=== PATIENT | female | born 1950 | race Caucasian/White ===

== ENCOUNTER → 2017-03-20 | Outpatient (CLI) | payer BC, OTHER ==
[~2017-03-20] MED LIST: ALPR.5T PO; ALPR0.5T7 PO; ALPR1T PO; ALPR1TAB2 PO; IBUP-15 PO; LACT1TAB2 PO; LEVO750T39 PO; NAPR220C11 PO; NAPR250T2 PO; SRTR100T PO; TOPI50TA37 PO; TPR25T PO; VERA240T98 PO; VRP240TCR PO
--- NOTE | 2017-03-20 13:05 | Diagnostic Imaging Report ---
3 views of the left knee. INDICATION: Fall. Left knee pain. FINDINGS: No fracture, dislocation, or radiopaque foreign body is seen. No suprapatellar effusion is noted. No significant arthritic changes seen. IMPRESSION: Unremarkable exam. Dictated by: Dictated on workstation # [id number]
== END ==
LOC: RAD 10:51
PROVIDERS: ATTEND Family Medicine
DX: M25.562 Pain in left knee (principal)
CPT/HCPCS: 73562

== ENCOUNTER → 2017-03-28 | Outpatient (CLI) | payer OTHER, BC | LOC: RAD 09:24 | PROVIDERS: ATTEND Family Medicine | DX: M25.562 Pain in left knee (principal) ==

== ENCOUNTER → 2017-03-31 | Outpatient (CLI) | payer BC, OTHER ==
--- NOTE | 2017-03-31 09:04 | Diagnostic Imaging Report ---
PROCEDURE: MRI left joint lower extremity without contrast. TECHNIQUE: Multiplanar, multisequence non contrast-enhanced MRI of the left lower extremity was accomplished. INDICATION: Fall. Left knee pain after injury. FINDINGS: There is bone marrow edema involving the anterior aspect of the lateral tibial condyle compatible with a contusion. No macroscopic or displaced fracture seen. The extensor mechanism is intact. There is a small suprapatellar effusion. There is a cystic lesion measuring 1.1 x 1.2 x 1.0 cm seen along the upper posterior aspect of the posterior knee joint capsule area projecting into the popliteal fossa of the supracondylar level of the femur. This is likely related to a ganglion cyst. There is no Santos cyst. The ACL and PCL are intact. The medial meniscus demonstrates a complex tear involving the posterior horn and body of the meniscus with extension to the posterior root. The anterior horn appears intact. The lateral meniscus demonstrates increased signal in the posterior horn, potentially degenerative with no definite tear. There is mild edema along the MCL suggestive of a sprain. The lateral collateral ligament complex appears intact. There is mild thinning of the cartilage in the medial compartment with fissuring. There is minimal cartilage fissuring in the lateral compartment. The patellofemoral compartment demonstrates preserved cartilage. IMPRESSION: 1. Complex tear involving the posterior horn and body of the medial meniscus. 2. Bone marrow contusion in the anterior aspect of the lateral tibial condyle. 3. A 1.2-cm fluid-intensity lesion abutting the posterior aspect of the supracondylar region of the femur, probably a ganglion cyst. Dictated by: Dictated on workstation # [id number]
== END ==
LOC: RAD 07:03
PROVIDERS: ATTEND Family Medicine
DX: S83.242A Other tear of medial meniscus, current injury, left knee, initial encounter (principal); M89.9 Disorder of bone, unspecified; W19.XXXA Unspecified fall, initial encounter; Y99.8 Other external cause status
CPT/HCPCS: 73721

== ENCOUNTER → 2018-08-14 | Outpatient (CLI) | payer BC ==
[~2018-08-14] MED LIST changes: -NAPR250T2 PO; +NAPR250T6 PO
== END ==
LOC: CARD 12:45
PROVIDERS: ATTEND Internal Medicine Cardiovascular Disease
DX: R07.9 Chest pain, unspecified (principal); I34.0 Nonrheumatic mitral (valve) insufficiency; R00.2 Palpitations; I07.1 Rheumatic tricuspid insufficiency
CPT/HCPCS: 93306

== ENCOUNTER → 2018-08-17 | Outpatient (CLI) | payer BC ==
[~2018-08-17] VITALS: Ht 152.4 cm; Wt 57.6 kg
[~2018-08-17] MED LIST changes: +CATHETER FLUSH 10 ML SYR IV PRN; +VERA240T14 PO; -VERA240T98 PO
[2018-08-17 09:05] VITALS: BP 126/82
[2018-08-17 09:09] VITALS: BP 166/81
[2018-08-17 09:10] VITALS: BP 166/83
[2018-08-17 09:12] VITALS: BP 158/87
--- NOTE | 2018-08-17 14:55 | STRESS TEST ---
DATE OF SERVICE: 08/17/2018 EXERCISE MYOVIEW STRESS TEST REFERRING PHYSICIAN: Magda Velazco MD. Baseline heart rate is 76, baseline blood pressure 119/78. Baseline EKG is sinus rhythm with no ischemic changes. In summary, the patient was injected with 10.33 mCi of technetium-99 Myoview and the resting images were obtained. Then, the patient started exercising with a baseline heart rate, blood pressure and EKG mentioned above. At peak stress level, she was injected with 31.4 mCi of technetium-99 Myoview. The patient was able to exercise for a total of 4 minutes 16 seconds on standard Billy protocol. With peak exercise level, EKG was showing nondiagnostic changes with less than [address] depression in leads II, III and aVF. During recovery, heart rate and blood pressure returned to baseline. EKG returned to baseline. The resting and stress images were reviewed and compared in the short axis, horizontal long axis, and vertical long axis views. Review of the images showed good radiotracer uptake with no ischemia or infarction on SPECT images. SSS is 3, SDS 3, and TID value 0.97. On the gated images, the left ventricle appeared to be normal size with normal contractility. Calculated ejection fraction is 92%. CONCLUSION: 1. Fair exercise tolerance, a total of 4 minutes 15 seconds on standard Billy protocol, total of 6 METs, achieving 92% of maximum expected heart rate. 2. Appropriate heart rate and blood pressure response to exercise returned to baseline during recovery. 3. Nondiagnostic EKG changes with exercise returned to baseline during recovery. 4. No significant ischemia or infarction on SPECT images. 5. Small to normal left ventricular size with normal contractility. Calculated ejection fraction is 92. Job ID: [id number] DocumentID: [id number] Dictated Date: 08/17/2018 12:42:04 Verifier Operator Date: 08/17/2018 14:54:57 Dictated By: ANDRE REMY MD
== END ==
LOC: CARD 07:29
PROVIDERS: ATTEND Internal Medicine Cardiovascular Disease
DX: R07.89 Other chest pain (principal); R00.2 Palpitations; I08.1 Rheumatic disorders of both mitral and tricuspid valves
CPT/HCPCS: 78452; 93017

== ENCOUNTER → 2019-01-05 | Outpatient (CLI) | payer BC ==
[~2019-01-05] MED LIST changes: -CATHETER FLUSH 10 ML SYR IV PRN
--- NOTE | 2019-01-05 11:05 | Diagnostic Imaging Report ---
INDICATION: Screening for osteoporosis. COMPARISON: None FINDINGS: The bone and density of the hips and spine was measured. The T score for the spine is -1.7. This does indicate osteopenia. The T score for the left femoral neck is -2.0 and the total T score for the left hip is -1.6. The total T score for the right hip is -2.0. All of these values indicate osteopenia. However the T score for the right femoral neck is -2.6 and this does suggest osteoporosis. AP Spine L1-L4: [BMD (g/cm2): 0.999] [T-Score: -1.7] [Z-Score: 0.4] [BMD Previous: N/A] [BMD % Change: N/A] LT Hip Neck: [BMD (g/cm2): 0.759] [T-Score: -2.0] [Z-Score: -0.2] LT Hip Total: [BMD (g/cm2):0.809] [T-Score:-1.6] [Z-Score: 0.0] [BMD Previous: N/A] [BMD % Change: N/A] RT Hip Neck: [BMD (g/cm2):0.672] [T-Score:-2.6] [Z-Score:-0.8] RT Hip Total: [BMD (g/cm2):0.753] [T-score:-2.0] [Z-Score:-0.4] [BMD Previous:N/A] [BMD % Change:N/A] *Indicates significant change from prior examination based on 95% confidence level. World Health Organization criteria for BMD interpretation classify patients as Normal (T-score at or above -1.0), Osteopenic (T-score between -1.0 and -2.5) or Osteoporotic (T-score at or below -2.5). LIMITATIONS AND MODIFICATION: None. FRACTURE RISK (FRAX SCORE): The ten year probability of (%): Major Osteoporotic Fracture: [14.0] Hip Fracture: [3.5] IMPRESSION: 1. The T score for the spine, the left hip, the left femoral neck and the right hip indicates osteopenia. 2. There is osteoporosis of the right femoral neck however. 3. See below National Osteoporosis Foundation guidelines on when to potentially initiate pharmacologic therapy. Based on the National Osteoporosis Foundation Guidelines, pharmacologic treatment should be initiated in any of the following, unless clinical conditions suggest otherwise: * Any patient with prior fragility fracture of the hip or vertebrae. A spine fracture indicates 5X risk for subsequent spine fracture and 2X risk for subsequent hip fracture. * Osteoporosis (T-score <-2.5). * Postmenopausal women and men age 50 and older with low bone mass/osteopenia (T-score between -1.0 and -2.5) by DXA and 10-year major osteoporotic fracture greater than 20% or a 10-year probability of hip fracture greater than 3%. These fracture risks are supplied above in the FRAX score, if applicable. * Clinician judgement and/or patient preferences may indicate treatment for people with 10-year fracture probabilities above or below these levels. Dictated by: Dictated on workstation # [id number]
== END ==
LOC: RAD 10:16
PROVIDERS: ATTEND Family Medicine
DX: Z13.820 Encounter for screening for osteoporosis (principal); M81.0 Age-related osteoporosis without current pathological fracture; M85.89 Other specified disorders of bone density and structure, multiple sites
CPT/HCPCS: 77080

== ENCOUNTER 2019-05-02 19:46 | Day surgery (SDC) | payer BC ==
[~2019-05-02] VITALS: Ht 152.4 cm; Wt 52.6 kg
[2019-05-02] MEDS ORDERED: ADENOSINE 6 MG/2 ML (ADENOCARD) VIAL IV ONE ×2 (19:53→20:15)
[2019-05-02] MEDS ORDERED: NS IV 1000 ML 1,000 ML ONE (19:54)
[2019-05-02] MEDS ORDERED: NS IV 1000 ML 1,000 ML IV ONE (20:14)
[2019-05-02 20:21] LABS: BASOPHILS # (AUTO) 0.1 10^3/uL (0.0-0.1); BASOPHILS % (AUTO) 1 % (0-10); EOSINOPHILS # (AUTO) 0.5 10^3/uL (0.0-0.3); EOSINOPHILS % (AUTO) 5 % (0-10); HEMATOCRIT 41 % (35-52); HEMOGLOBIN 13.6 G/DL (11.5-16.0); LYMPHOCYTES # (AUTO) 3.8 X 10^3 (1.0-4.0); LYMPHOCYTES % (AUTO) 41 % (12-44); MEAN CORPUSCULAR HEMOGLOBIN 30 PG (25-34); MEAN CORPUSCULAR HGB CONC 33 G/DL (32-36); MEAN CORPUSCULAR VOLUME 91 FL (80-99); MEAN PLATELET VOLUME 10.5 FL (7.4-10.4); MONOCYTES # (AUTO) 0.8 X 10^3 (0.0-1.0); MONOCYTES % (AUTO) 8 % (0-12); NEUTROPHILS # (AUTO) 4.1 X 10^3 (1.8-7.8); NEUTROPHILS % (AUTO) 44 % (42-75); PLATELET COUNT 331 10^3/uL (130-400); RED CELL DISTRIBUTION WIDTH 12.8 % (10.0-14.5); WHITE BLOOD COUNT 9.2 10^3/uL (4.3-11.0)
[2019-05-02 20:33] LABS: ALANINE AMINOTRANSFERASE 113 U/L (0-55); ALBUMIN 4.6 GM/DL (3.2-4.5); ALKALINE PHOSPHATASE 87 U/L (40-136); BILIRUBIN,TOTAL 0.5 MG/DL (0.1-1.0); BUN/CREATININE RATIO 15; CALCIUM 9.7 MG/DL (8.5-10.1); CARBON DIOXIDE 23 MMOL/L (21-32); CHLORIDE 100 MMOL/L (98-107); GFR ESTIMATED 55; GLUCOSE 166 MG/DL (70-105); MAGNESIUM 1.9 MG/DL (1.6-2.4); POTASSIUM 3.5 MMOL/L (3.6-5.0); SODIUM 136 MMOL/L (135-145); TOTAL PROTEIN 7.8 GM/DL (6.4-8.2)
[2019-05-02 20:37] LABS: INR 0.9 (0.8-1.4); PROTHROMBIN TIME PATIENT 12.5 SEC (12.2-14.7)
--- NOTE | 2019-05-02 20:43 | ED Cardiac General ---
History of Present Illness General Chief Complaint: Cardiac/General Problems Stated Complaint: CHEST PAIN, HEART RATE Nursing Triage Note: Pt ambulates to RM 3 with c/o sternal chest pain that radiates to right shoulder, started approx 1915 this evening. Pt states she has a Hx of AFib, is in SVT on arrival. Pt denies taking any ASA or NTG [employer] DIRECTOR. Source: patient Exam Limitations: no limitations History of Present Illness Date Seen by Provider: May 02, 2019 Time Seen by Provider: 19:53 Initial Comments Here with report of acute onset of rapid heart rate at about 1915 tonight. Does have history of atrial fibrillation and she is on verapamil. She's been stable on that for 20 years. She follows with Dr. Zuñiga and has appointment with him tomorrow. Does note that she had neck pain on the right side yesterday. Denies nausea, vomiting or sweating. States that she feels like her heart is pounding in her chest and was noted to have a heart rate of 200 on arrival. Ultimately she decided to come to the ER after her apple watch was given a call EMS because it found a heart rate of 205. reports the blood pressure home was 130s over 80s. She has never had an event like this before. She reports that she has had no for stress test and echocardiogram have been normal and a heart catheter 20 years ago that was also normal. 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 TOOK WHEN YOUNGER AND PASSED OUT, 12/03/11) Home Medications Alprazolam 0.5 Mg Tablet, 2 MG PO Q4H PRN for HEADACHE, (Reported) TAKES 4 (0.5MG) TABLETS Alprazolam 0.5 Mg Tablet, 1 MG PO 0500, 1200, 1900, (Reported) TAKES 2 (0.5MG) TABLETS Lactobacillus Acidophilus/Pect 1 Each Tab.chew, 1 EACH PO TID Prescribed by: AIDAN PAREDES on 10/04/15834 Levofloxacin 750 Mg Tablet, 750 MG PO DAILY@1100 Prescribed by: AIDAN PAREDES on 10/04/15834 Naproxen 250 Mg Tablet, 250 MG PO BID WITH MEALS Prescribed by: AIDAN PAREDES on 10/04/15834 Sertraline Hcl 100 Mg Tab, 100 MG PO DAILY, (Reported) Topiramate 50 Mg Tablet, 25 MG PO BID Prescribed by: AIDAN PAREDES on 10/04/15834 Verapamil HCl 240 Mg Tablet.er, 120 MG PO DAILY, (Reported) TAKES 1/2 (240MG) TABLET Patient Home Medication List Home Medication List Reviewed: Yes Review of Systems Review of Systems Constitutional: see HPI; No chills, No fever EENTM: No Symptoms Reported Respiratory: Denies Cough, Denies Shortness of Air Cardiovascular: See HPI, Irregular Heart Rate, Syncope Gastrointestinal: No Symptoms Reported Genitourinary: No Symptoms Reported Musculoskeletal: joint pain (right shoulder), muscle pain, neck pain (right- sided) Skin: no symptoms reported All Other Systems Reviewed Negative Unless Noted: Yes Past Iepyahj-Duvjvc-Xopvej Hx Past Med/Social Hx: Reviewed Nursing Past Med/Soc Hx Patient Social History Alcohol Use: Denies Use Recreational Drug Use: No Smoking Status: Never a Smoker 2nd Hand Smoke Exposure: No Recent Foreign Travel: No Contact w/Someone Who Travel: No Recent Infectious Disease Expo: No Recent Hopitalizations: No Physical Abuse: No Sexual Abuse: No Mistreated: No Fear: No Immunizations Up To Date Tetanus Booster (TDap): Unknown PED Vaccines UTD: No Seasonal Allergies Seasonal Allergies: No Past Medical History Surgeries: Yes (breast biopsy) Lumpectomy, Tonsillectomy Respiratory: No Cardiac: Yes Atrial Fibrillation Neurological: Yes Headaches /Migraines Reproductive Disorders: No Female Reproductive Disorders: Denies Sexually Transmitted Disease: No HIV/AIDS: No Genitourinary: No Gastrointestinal: Yes Polyps Musculoskeletal: Yes Arthritis Endocrine: No HEENT: No Cancer: Yes (precancerous mole removed from face) Skin Psychosocial: No Integumentary: No Blood Disorders: No Adverse Reaction/Blood Tranf: No Family Medical History Reviewed Nursing Family Hx Completed stroke 19 MOTHER, , Age:60 years and older G8 BROTHER, , Age:40 Coronary thrombosis 19 MOTHER, , Age:60 years and older Dementia 19 MOTHER, , Age:60 years and older Diabetes mellitus 19 MOTHER, , Age:60 years and older (mother and MGM) Glaucoma 19 MOTHER, , Age:60 years and older Hypertension 19 MOTHER, , Age:60 years and older G8 SISTER Myocardial infarction G8 BROTHER, , Age:40 No Pertinent Family Hx Physical Exam Vital Signs Vital Signs - First Documented 05/02/19 19:50 Temp 36.0 Pulse 208 Resp 16 B/P (MAP) 100/76 (84) Pulse Ox 100 O2 Delivery Room Air Capillary Refill : Less Than 3 Seconds Height, Weight, BMI Height: 5'0.00" Weight: 127lbs. 0.0oz. [id number]; 22.00 BMI Method:Estimated General Appearance: No Apparent Distress, WD/WN HEENT: PERRL/EOMI, Pharynx Normal Neck: Non Tender, Supple Respiratory: Lungs Clear, Normal Breath Sounds Cardiovascular: No Murmur, Tachycardia Gastrointestinal: Non Tender, Soft Extremity: Normal Range of Motion, Non Tender Neurologic/Psychiatric: Alert, Oriented x3 Skin: Normal Color, Warm/Dry Progress/Results/Core Measures Results/Orders Lab Results Laboratory Tests Test 05/02/19 20:04 Range/Units White Blood Count 9.2 4.3-11.0 10^3/uL Red Blood Count 4.56 4.35-5.85 10^6/uL Hemoglobin 13.6 11.5-16.0 G/DL Hematocrit 41 35-52 % Mean Corpuscular Volume 91 80-99 FL Mean Corpuscular Hemoglobin 30 25-34 PG Mean Corpuscular Hemoglobin Concent 33 32-36 G/DL Red Cell Distribution Width 12.8 10.0-14.5 % Platelet Count 331 130-400 10^3/uL Mean Platelet Volume 10.5 H 7.4-10.4 FL Neutrophils (%) (Auto) 44 42-75 % Lymphocytes (%) (Auto) 41 12-44 % Monocytes (%) (Auto) 8 0-12 % Eosinophils (%) (Auto) 5 0-10 % Basophils (%) (Auto) 1 0-10 % Neutrophils # (Auto) 4.1 1.8-7.8 X 10^3 Lymphocytes # (Auto) 3.8 1.0-4.0 X 10^3 Monocytes # (Auto) 0.8 0.0-1.0 X 10^3 Eosinophils # (Auto) 0.5 H 0.0-0.3 10^3/uL Basophils # (Auto) 0.1 0.0-0.1 10^3/uL Prothrombin Time 12.5 12.2-14.7 SEC INR Comment 0.9 0.8-1.4 Activated Partial Thromboplast Time 31 24-35 SEC D-Dimer 1.08 H 0.00-0.49 UG/ML Sodium Level 136 135-145 MMOL/L Potassium Level 3.5 L 3.6-5.0 MMOL/L Chloride Level 100 98-107 MMOL/L Carbon Dioxide Level 23 21-32 MMOL/L Anion Gap 13 5-14 MMOL/L Blood Urea Nitrogen 15 7-18 MG/DL Creatinine 1.00 0.60-1.30 MG/DL Estimat Glomerular Filtration Rate 55 BUN/Creatinine Ratio 15 Glucose Level 166 H 70-105 MG/DL Calcium Level 9.7 8.5-10.1 MG/DL Corrected Calcium 8.5-10.1 MG/DL Magnesium Level 1.9 1.6-2.4 MG/DL Total Bilirubin 0.5 0.1-1.0 MG/DL Aspartate Amino Transf (AST/SGOT) 146 H 5-34 U/L Alanine Aminotransferase (ALT/SGPT) 113 H 0-55 U/L Alkaline Phosphatase 87 40-136 U/L Myoglobin 19.1 10.0-92.0 NG/ML Troponin I < 0.028 <0.028 NG/ML Total Protein 7.8 6.4-8.2 GM/DL Albumin 4.6 H 3.2-4.5 GM/DL My Orders Orders - JAYDA STEIN MD Adenosine Injection (Adenocard Injection (05/02/19 19:53) Ns Iv 1000 Ml (Sodium Chloride 0.9%) (05/02/19 19:54) Cbc With Automated Diff (05/02/19 20:14) Magnesium (05/02/19 20:14) Chest 1 View, Ap/Pa Only (05/02/19 20:14) Ekg Tracing (05/02/19 20:14) Cardiac Profile 1 (05/02/19 20:14) Comprehensive Metabolic Panel (05/02/19 20:14) Myoglobin Serum (05/02/19 20:14) Protime With Inr (05/02/19 20:14) Partial Thromboplastin Time (05/02/19 20:14) O2 (05/02/19 20:14) Monitor-Rhythm Ecg Trace Only (05/02/19 20:14) Ed Iv/Invasive Line Start (05/02/19 20:14) Fibrin Degradation Products (05/02/19 20:14) Ekg Tracing (05/02/19 20:14) Adenosine Injection (Adenocard Injection (05/02/19 20:15) Ns Iv 1000 Ml (Sodium Chloride 0.9%) (05/02/19 20:14) Medications Given in ED Current Medications Medications Dose Ordered Sig/Val Route Start Time Stop Time Status Last Admin Dose Admin Adenosine 6 mg STK-MED ONCE IV 05/02/19 19:53 05/02/19 19:57 DC 05/02/19 20:08 6 MG Sodium Chloride 1,000 ml @ ud STK-MED ONCE .ROUTE 05/02/19 19:54 05/02/19 19:57 DC 05/02/19 20:08 0 MLS/HR Vital Signs/I&O 05/02/19 19:50 Temp 36.0 Pulse 208 Resp 16 B/P (MAP) 100/76 (84) Pulse Ox 100 O2 Delivery Room Air 05/03/19 00:00 Intake Total 1000 ml Balance 1000 ml Blood Pressure Mean: 84 POS Progress Progress Note : Progress Note Seen and evaluated. Patient noted to be and supraventricular tachycardia with a rate of 200-210. IV 2 established, labs, EKG and chest x-ray ordered. Normal saline 1 L bolus. We did try vagal maneuvers with blowing into syringe and lifting legs. This did not work. Adenosine 6 mg IV with rapid push and flush afterwards done and this did resolve the SVT. Patient went into sinus rhythm. She noted increasing right shoulder pain at that time. Blood pressure 100/60. Heart rate 80s to 100 now. We will check labs and continue to monitor. 2119: D- dimer noted to be slightly elevated. I did discuss this with Dr. Zuñiga. We will go ahead and give Lovenox 50 mg subcutaneous and he is recommending admission fo r observation for which I totally agree Especially in light of the chest pain and paroxysmal SVT. 2147: I did rediscuss the case with Dr. Zuñiga as patient and family did have questions regarding observation visit. Currently the only meet observation status but they wanted me to check so I did. Patient still meets observation status and this is how she will be admitted the. Dr. Zuñiga will see them in the morning. I did rediscuss my concerns related to her presentation and chest pain. She agrees to plan. Admit, observation status. Patient was allowed to take her home Xanax dosing and we will continue that on admission. Initial ECG Impression Date: May 02, 2019 Initial ECG Impression Time: 19:52 Initial ECG Rate: 199 Initial ECG Rhythm: SVT Initial ECG Impression: SVT Comment Supraventricular tachycardia with rate of 199. Normal axis. No evidence of ST elevation CO. Interpreted by me. EKG : EKG Time: 20:07 Rate: 88 Rhythm: Normal Sinus ECG Comparisson: Changed ECG Impression: Normal Comment Normal sinus rhythm with rate of 88. Normal axis. No evidence of ST elevation CO. Change from previous done earlier today. Interpreted by me. Diagnostic Imaging Diagonstic Imaging: Xray Plain Films/CT/US/NM/MRI: chest Comments [facility]. POS [place], [place] POS NAME: JASON KEMP [facility] REC#: [id number] PT STATUS: REG ER : 1950 PHYSICIAN: JAYDA STEIN MD ADMIT DATE: 05/02/19/ER Draft POSDate of Exam:05/02/19 CHEST 1 VIEW, AP/PA ONLY EXAMINATION: Portable erect AP chest at 8:27 PM INDICATION: Chest pain The heart size is at the upper limits of normal but stable when compared to 10/04/2015. The lungs are clear. There is no evidence for failure, pneumonia or a pleural effusion to indicate an acute abnormality. The carotid bronchovascular markings in the right infrahilar region seen previously are again evident and no different. The mediastinum is not widened. The osseous structures are intact. IMPRESSION: There is no evidence for active disease. Dictated on workstation # [id number] Dict: 05/02/192033 Trans: 05/02/192043 [facility] [id number] Interpreted by: AILIN WHITEHEAD MD Electronically signed by: Departure Communication (Admissions) Time/Spoke to Admitting Phy: 21:20 Impression Primary Impression: Paroxysmal SVT (supraventricular tachycardia) Additional Impression: Chest pain Qualified Codes: R07.9 - Chest pain, unspecified Disposition: ADMITTED INPATIENT Condition: Stable Admissions Decision to Admit Reason: Admit from ER (General) Decision to Admit/Date: May 02, 2019 Time/Decision to Admit Time: 21:20 Departure-Patient Inst. Referrals: AIDAN PAREDES MD (PCP/Family) Primary Care Physician JAYDA STEIN MD May 02, 2019 20:43 POS
[2019-05-02] MEDS ORDERED: ENOXAPARIN 60 MG/0.6 ML (LOVENOX) SYR SC ONE (21:30)
[2019-05-02 22:30] VITALS: BP 138/84
[2019-05-02 22:53] VITALS: BP 117/78
[2019-05-02 23:08] VITALS: BP 132/81
[2019-05-02 23:23] VITALS: BP 135/81
[2019-05-02] MEDS ORDERED: ONDANSETRON 4 MG/2 ML (SDV) Z0FRAN IV PRN (23:30)
[2019-05-02 23:53] VITALS: BP 136/90
[2019-05-03] VITALS (19 sets, daily range): BP systolic 106–129; BP diastolic 69–85
[2019-05-03] MEDS: NITROGLYCERIN 0.4 MG SL TABS BTL 25'S SL PRN ×2 (00:05→06:26)
[2019-05-03 02:28] LABS: BASOPHILS % (AUTO) 1 % (0-10); EOSINOPHILS # (AUTO) 0.4 10^3/uL (0.0-0.3); EOSINOPHILS % (AUTO) 6 % (0-10); HEMATOCRIT 39 % (35-52); HEMOGLOBIN 12.6 G/DL (11.5-16.0); LYMPHOCYTES # (AUTO) 1.9 X 10^3 (1.0-4.0); LYMPHOCYTES % (AUTO) 32 % (12-44); MEAN CORPUSCULAR HEMOGLOBIN 30 PG (25-34); MEAN CORPUSCULAR HGB CONC 33 G/DL (32-36); MEAN CORPUSCULAR VOLUME 91 FL (80-99); MEAN PLATELET VOLUME 10.8 FL (7.4-10.4); MONOCYTES # (AUTO) 0.5 X 10^3 (0.0-1.0); MONOCYTES % (AUTO) 8 % (0-12); NEUTROPHILS # (AUTO) 3.2 X 10^3 (1.8-7.8); NEUTROPHILS % (AUTO) 54 % (42-75); PLATELET COUNT 228 10^3/uL (130-400); RED CELL DISTRIBUTION WIDTH 12.9 % (10.0-14.5); WHITE BLOOD COUNT 5.9 10^3/uL (4.3-11.0)
[2019-05-03 02:46] LABS: ALANINE AMINOTRANSFERASE 89 U/L (0-55); ALBUMIN 4.1 GM/DL (3.2-4.5); ALKALINE PHOSPHATASE 66 U/L (40-136); BILIRUBIN,TOTAL 0.6 MG/DL (0.1-1.0); BUN/CREATININE RATIO 17; CALCIUM 9.4 MG/DL (8.5-10.1); CARBON DIOXIDE 21 MMOL/L (21-32); CHLORIDE 107 MMOL/L (98-107); CHOLESTEROL 207 MG/DL (< 200); CREATININE SERUM 0.71 MG/DL (0.60-1.30); GFR ESTIMATED > 60; GLUCOSE 93 MG/DL (70-105); HDL CHOLESTEROL 59 MG/DL (40-60); POTASSIUM 3.9 MMOL/L (3.6-5.0); SODIUM 138 MMOL/L (135-145); TOTAL PROTEIN 6.7 GM/DL (6.4-8.2); TRIGLYCERIDES 87 MG/DL (<150); VLDL CHOLESTEROL 17 MG/DL (5-40)
--- NOTE | 2019-05-03 08:04 | Progress Note - Hospitalist ---
Subjective HPI/CC On Admission Date Seen by Provider: May 03, 2019 Time Seen by Provider: 07:15 Chest pain Subjective/Events-last exam Patient was comfortable this morning. She stated that she didn't fall asleep until 2 am, but has trouble falling asleep usually. Last night the patient has some chest pain that felt like it radiated to her back and up to her neck. She was given Nitroglycerin and states that she is feeling better. She did state that she started to get a headache this morning but attributes it to the nitro tablet. She also states that her nausea has gradually become better. The patient's vitals were normal and stable this morning. The patient did state that her neck was a little stiff and that the top of her foot was intermittently tender, but this is an ongoing issue. Review of Systems General: No Chills, No Night Sweats, No Fatigue, No Malaise, No Appetite, No Other HEENT: Head Aches; No Visual Changes, No Eye Pain; Ear Pain (L Ear pain + tinnitis ); No Dysphasia, No Sinus Congestion, No Post Nasal Drip, No Sore Throat, No Other Pulmonary: No Dyspnea, No Cough, No Pleuritic Chest Pain; Other (Chest ti ghtness) Cardiovascular: No: Chest Pain, Palpitations, Orthopnea, Paroxysmal Noc. Dyspnea, Edema, Lt Headedness, Other Gastrointestinal: Constipation; No: Nausea, Vomiting, Abdominal Pain, Diarrhea, Melena, Hematochezia, Other Genitourinary: No Dysuria, No Frequency, No Incontinence, No Hematuria, No Retention, No Other Musculoskeletal: neck pain, foot pain (R Foot on the dorsal aspect) Neurological: No: Weakness, Numbness, Incoordination, Change in speech, Confusion, Seizures, Other Focused Exam Respiratory: Chest Non Tender, Lungs Clear, Normal Breath Sounds, No Accessory Muscle Use, No Respiratory Distress Cardiovascular: Regular Rate, Rhythm, No Edema, No Gallop, No JVD, No Murmur, Normal Peripheral Pulses Peripheral Pulses: 2+ Carotid (R), 2+ Carotid (L), 2+ Dorsalis Pedis (R), 2+ Left Dors-Pedis (L), 2+ Radial Pulses (R), 2+ Radial Pulses (L) Skin: normal color, warm/dry Objective Exam Vital Signs Vital Signs Date Time Temp Pulse Resp B/P (MAP) Pulse Ox O2 Delivery O2 Flow Rate FiO2 05/03/19 06:38 74 123/82 (96) 05/03/19 06:28 97 Room Air 05/03/19 03:53 36.2 20 Capillary Refill : Less Than 3 Seconds General Appearance: No Apparent Distress, WD/WN HEENT: PERRL/EOMI Neck: Full Range of Motion, Normal Inspection, Supple, Tender Lateral (L lateral tenderness - muscular) Respiratory: Chest Non Tender, Lungs Clear, Normal Breath Sounds, No Accessory Muscle Use, No Respiratory Distress Cardiovascular: Regular Rate, Rhythm, No Edema, No Gallop, No JVD, No Murmur, Normal Peripheral Pulses Gastrointestinal: Normal Bowel Sounds, No Organomegaly, No Pulsatile Mass, Non Tender, Soft Extremity: Normal Capillary Refill, Normal Range of Motion, Non Tender, No Calf Tenderness Neurologic/Psychiatric: Alert, Oriented x3, No Motor/Sensory Deficits, Normal Mood/Affect Skin: Normal Color, Warm/Dry Lymphatic: No Adenopathy Results/Procedures Lab Laboratory Tests 05/02/19 20:04 05/03/19 02:10 Patient resulted labs reviewed. Assessment/Plan Assessment and Plan Assess & Plan/Chief Complaint Assessment: 1. Cardiovascular: - A. Fib: treat with verapamil - Angina Pectoris: treat with Nitroglycerin tablet PRN - Anterior lead ST depression: Monitor troponin and CK-MB levels - SVT: rate control 2. HEENT: - L Ear pain and tinnitis: monitor if worsen 3. MSK: - Cervical tenderness on the L: anti-inflammatory PRN Clinical Quality Measures AMI/AHF: ASA po Prior to arrival: Yes (325 mg this morning) DVT/VTE Risk/Contraindication: Risk Factor Score Per Nursin RFS Level Per Nursing on Admit: 2=Moderate AVELINO LI MED STUDEN May 03, 2019 08:04 POS
[2019-05-03] MEDS ORDERED: CYAN250014 PO (08:25)
[2019-05-03] MEDS ORDERED: CHOL500050 PO (08:25)
[2019-05-03] MEDS ORDERED: ALPR0.5T7 PO (08:25)
[2019-05-03] MEDS ORDERED: ASPI-808 PO (08:25)
--- NOTE | 2019-05-03 08:51 | Consultation-Cardiology ---
HPI-Cardiology Cardiology Consultation Date of Consultation 05/03/19 Date of Admission Time Seen by Provider: 08:46 Indication: chest pain HPI 69-year-old lady with history of coronary artery disease, has been having chest pain on and off, started to have sudden onset of pounding in her chest, came into the emergency room and noted to have SVT, probably reentry tachycardia, res ponded to adenosine injection. Started to have chest pain then headache. Denied any syncope or near syncopal episode. Has been compliant with her medication Home Medications & Allergies Allergies: Coded Allergies: Sulfa (Sulfonamide Antibiotics) (Unverified Allergy, Severe, RASH, 12/03/11) codeine (Unverified Allergy, Severe, SOA, 12/03/11) Uncoded Allergies: PCN (Allergy, Intermediate, PT. TOOK WHEN YOUNGER AND PASSED OUT, 12/03/11) Home Medication List Reviewed: Yes RBC-Fqhqzm-Vjxzaz Hx Patient Social History Marital Status: Employed/Student: employed Alcohol Use: Denies Use Recreational Drug Use: No Smoking Status: Never a Smoker 2nd Hand Smoke Exposure: No Recent Foreign Travel: No Recent Infectious Disease Expo: No Recent Hopitalizations: No Immunizations Up To Date Tetanus Booster (TDap): Unknown Date of Pneumonia Vaccine: Oct 04, 2015 Past Medical History discussed below Family Medical History Significant Family History: No Pertinent Family Hx Family History: Completed stroke 19 MOTHER, , Age:60 years and older G8 BROTHER, , Age:40 Coronary thrombosis 19 MOTHER, , Age:60 years and older Dementia 19 MOTHER, , Age:60 years and older Diabetes mellitus 19 MOTHER, , Age:60 years and older (mother and MGM) Glaucoma 19 MOTHER, , Age:60 years and older Hypertension 19 MOTHER, , Age:60 years and older G8 SISTER Myocardial infarction G8 BROTHER, , Age:40 Review of Systems-General Review of Systems Constitutional: see HPI; No chills, No fever EENTM: see HPI, no symptoms reported Respiratory: see HPI; No cough, No dyspnea on exertion, No hemoptysis, No orthopnea, No phlegm, No short of breath, No stridor, No wheezing, No other Cardiovascular: see HPI, chest pain; No edema, No Hx of Intervention; palpitations; No syncope, No vascular heart diseas, No other Gastrointestinal: no symptoms reported, see HPI Genitourinary: no symptoms reported, see HPI Musculoskeletal: joint pain (right shoulder), muscle pain, neck pain (right- sided) Skin: no symptoms reported Psychiatric/Neurological: See HPI, Anxiety All Other Systems Reviewed Negative Unless Noted: Yes Reviewed Test Results Reviewed Test Results Lab Laboratory Tests Test 05/02/19 20:04 05/03/19 02:10 05/03/19 08:04 Range/Units White Blood Count 9.2 5.9 4.3-11.0 10^3/uL Red Blood Count 4.56 4.23 L 4.35-5.85 10^6/uL Hemoglobin 13.6 12.6 11.5-16.0 G/DL Hematocrit 41 39 35-52 % Mean Corpuscular Volume 91 91 80-99 FL Mean Corpuscular Hemoglobin 30 30 25-34 PG Mean Corpuscular Hemoglobin Concent 33 33 32-36 G/DL Red Cell Distribution Width 12.8 12.9 10.0-14.5 % Platelet Count 331 228 130-400 10^3/uL Mean Platelet Volume 10.5 H 10.8 H 7.4-10.4 FL Neutrophils (%) (Auto) 44 54 42-75 % Lymphocytes (%) (Auto) 41 32 12-44 % Monocytes (%) (Auto) 8 8 0-12 % Eosinophils (%) (Auto) 5 6 0-10 % Basophils (%) (Auto) 1 1 0-10 % Neutrophils # (Auto) 4.1 3.2 1.8-7.8 X 10^3 Lymphocytes # (Auto) 3.8 1.9 1.0-4.0 X 10^3 Monocytes # (Auto) 0.8 0.5 0.0-1.0 X 10^3 Eosinophils # (Auto) 0.5 H 0.4 H 0.0-0.3 10^3/uL Basophils # (Auto) 0.1 0.0 0.0-0.1 10^3/uL Prothrombin Time 12.5 12.2-14.7 SEC INR Comment 0.9 0.8-1.4 Activated Partial Thromboplast Time 31 24-35 SEC D-Dimer 1.08 H 0.00-0.49 UG/ML Sodium Level 136 138 135-145 MMOL/L Potassium Level 3.5 L 3.9 3.6-5.0 MMOL/L Chloride Level 100 107 98-107 MMOL/L Carbon Dioxide Level 23 21 21-32 MMOL/L Anion Gap 13 10 5-14 MMOL/L Blood Urea Nitrogen 15 12 7-18 MG/DL Creatinine 1.00 0.71 0.60-1.30 MG/DL Estimat Glomerular Filtration Rate 55 > 60 BUN/Creatinine Ratio 15 17 Glucose Level 166 H 93 70-105 MG/DL Calcium Level 9.7 9.4 8.5-10.1 MG/DL Corrected Calcium 9.3 8.5-10.1 MG/DL Magnesium Level 1.9 1.6-2.4 MG/DL Total Bilirubin 0.5 0.6 0.1-1.0 MG/DL Aspartate Amino Transf (AST/SGOT) 146 H 79 H 5-34 U/L Alanine Aminotransferase (ALT/SGPT) 113 H 89 H 0-55 U/L Alkaline Phosphatase 87 66 40-136 U/L Myoglobin 19.1 10.0-92.0 NG/ML Troponin I < 0.028 0.063 H 0.045 H <0.028 NG/ML Total Protein 7.8 6.7 6.4-8.2 GM/DL Albumin 4.6 H 4.1 3.2-4.5 GM/DL Triglycerides Level 87 <150 MG/DL Cholesterol Level 207 H < 200 MG/DL LDL Cholesterol Direct 142 H 1-129 MG/DL VLDL Cholesterol 17 5-40 MG/DL HDL Cholesterol 59 40-60 MG/DL Physical Exam Physical Exam Vital Signs Vital Signs - First Documented 05/02/19 19:50 Temp 36.0 Pulse 208 Resp 16 B/P (MAP) 100/76 (84) Pulse Ox 100 O2 Delivery Room Air Capillary Refill : Less Than 3 Seconds Height, Weight, BMI Height: 5'0.00" Weight: 127lbs. 0.0oz. 57.758240sp; 22.99 BMI Method:Estimated General Appearance: No Apparent Distress, WD/WN Eyes: Bilateral Eye Normal Inspection, Bilateral Eye PERRL, Bilateral Eye EOMI HEENT: PERRL/EOMI Neck: Full Range of Motion, Normal Inspection, Supple, Tender Lateral Respiratory: Chest Non Tender, Lungs Clear, Normal Breath Sounds, No Accessory Muscle Use, No Respiratory Distress Cardiovascular: Regular Rate, Rhythm, No Edema, No Gallop, No JVD, No Murmur, Normal Peripheral Pulses Gastrointestinal: Normal Bowel Sounds, No Organomegaly, No Pulsatile Mass, Non Tender, Soft Back: Normal Inspection, No CVA Tenderness, No Vertebral Tenderness Extremity: Normal Capillary Refill, Normal Range of Motion, Non Tender, No Calf Tenderness Neurologic/Psychiatric: Alert, Oriented x3, No Motor/Sensory Deficits, Normal Mood/Affect Skin: Normal Color, Warm/Dry Lymphatic: No Adenopathy A/P-Cardiology Admission Diagnosis Unstable angina Coronary artery disease Hypertension Hyperlipidemia Assessment/Plan Unstable angina, history of normal stress test in August 2018, had chest pain probably secondary to tachycardia, had slight elevation in troponin, planning to proceed with cardiac catheterization Palpitation, paroxysmal supraventricular tachycardia, responded to Adenosine injection, probably reentry tachycardia. 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 Otherwise no significant obstructive disease, stress test was done in August 2018, had no significant ischemia, borderline exercise tolerance. Currently having elevation in troponin, chest pain, planning to proceed with cardiac catheterization Hypertension, Restart home medication monitor Hyperlipidemia, monitor lipids Reported history of mitral valve prolapse in the past-most recent 2-D echocardiogram done in 2009 revealed no evidence of mitral valve prolapse repeating echocardiogram in January 2016 did not show any mitral valve prolapse, pulmonary artery pressure is mildly elevated History of migraine headaches. Osteoporosis, started on Forteo, was intolerant to the medication, it was discontinued managed by primary care physician Anxiety Clinical Quality Measures AMI/AHF: ASA po Prior to arrival: Yes (325 mg this morning) DVT/VTE Risk/Contraindication: Risk Factor Score Per Nursin RFS Level Per Nursing on Admit: 2=Moderate ANDRE REMY MD May 03, 2019 08:51 POS
--- NOTE | 2019-05-03 08:55 | Cardiac Procedure Note-CS/ASA ---
Pre-Procedure Note Pre-Op Procedure Note H&P Reviewed The H&P was reviewed, patient examined and no changes noted. Date H&P Reviewed: May 03, 2019 Time H&P Reviewed: 08:55 Conscious Sedation Pre-Proced Time 08:55 ASA Score 3 For ASA 3 and 4: Consider anesthesia and medical clearance. Also, for patients with a history of failed moderate sedation consider anesthesia. Airway Lungs Heart ASA score ASA 1: a normal healthy patient ASA 2: a patient with a mild systemic disease (mid diabetes, controlled hypertension, obesity x ASA 3: a patient with a severe systemic disease that limits activity (angina, COPD, prior Myocardial infarction) ASA 4: a patient with an incapacitating disease that is a constant threat to life (CHF, renal failure) ASA 5: a moribund patient not expected to survive 24 hrs. (ruptured aneurysm) ASA 6: a declared brain- patient whose organs are being harvested. For emergent operations, add the letter E after the classification Mallampati Classification Grade 3 Sedation Plan Analgesia, Amnesia, Plan communicated to team members, Discussed options with patient/fam, Discussed risks with patient/fam The patient is an appropriate candidate to undergo the planned procedure, sedation, and anesthesia. The patient immediately re-assessed prior to indication. ANDRE REMY MD May 03, 2019 08:55 POS
[2019-05-03] MEDS ORDERED: NS IV 1000 ML 1,000 ML IV SCH ×3 (09:00→10:28)
[2019-05-03] MEDS ORDERED: FLU QUADRIvalent (5+ YOA) 2019-2020 (AFLURIA) 0.5 ML IM ONE (09:00)
[2019-05-03] MEDS ORDERED: ASPIRIN E.C. 81 MG (ECOTRIN) TAB PO SCH (09:00)
[2019-05-03] MEDS ORDERED: LIDOCAINE 1% INJ 20 ML 20 ML VIAL ONE (09:02)
[2019-05-03] MEDS ORDERED: HEParin (CATH LAB) 2,000 ML IV ONE (09:02)
[2019-05-03] MEDS ORDERED: NS IV 1000 ML 1,000 ML ONE (09:03)
[2019-05-03] MEDS ORDERED: MIDAZOLAM 5 MG/5 ML (VERSED) VIAL ONE (09:43)
[2019-05-03] MEDS ORDERED: fentaNYL INJECTION 100 MCG/2 ML AMP ONE (09:43)
[2019-05-03] MEDS ORDERED: VERA120C2 PO (09:46)
[2019-05-03] MEDS ORDERED: CYAN100081 PO (09:46)
[2019-05-03] MEDS ORDERED: CYAN100015 SL (09:47)
--- NOTE | 2019-05-03 09:52 | NUR ---
SPOKE WITH THE PATIENT ABOUT HER MEDICATIONS. WE WENT OVER THE EXT MED HX AND SHE VERIFIED HOW SHE TAKES THEM. HER VERAPAMIL WAS FILLED #100 FOR 50 DAYS 04-02- - SHE STATES SHE ONLY TAKES 1 AT HS. SHE TAKES THE FOLLOWING OTC: VITAMIN B12 SL 2000MCG DAILY VITAMIN D DAILY ASPIRIN 325MG DAILY
--- NOTE | 2019-05-03 09:56 | NUR ---
PT LEAVING UNIT VIA BED ACCOMPANIED BY LOOM SETTER STAFF, WILL WAIT FOR PT TO RETURN TO UNIT.
[2019-05-03] MEDS ORDERED: PATIENT MAY USE OWN MEDS, ALL PO SCH (10:30)
--- NOTE | 2019-05-03 10:34 | Cardiac Cath Report ---
Cardiac Cath Report Physician (s)/Manager Net (s) Physician ANDRE REMY MD Pre-Procedure Diagnosis Pre-Procedure Diagnosis: Chest pain, elevated troponin Post-Procedure Note Procedure Start Date: May 03, 2019 Name of Procedure: Left heart catheterization Left ventriculogram Findings/Procedure Note PROCEDURE NOTE: 69-year-old lady with history of coronary artery disease, admitted with palpitation and tachycardia, was in SVT, converted after receiving Adenosine, has been having chest pain on and off, reporting episode of chest pain at home, noted to have mildly elevated troponin level. I decided to proceed with cardiac catheterization possible PTCA. After explaining the procedure to the patient, all pros and cons were explained, all questions were answered. The patient signed the consent and then she was placed on the cardiac catheterization laboratory. Groin was prepped SL fashion local anesthesia was used. Sheath placed in the right femoral artery. Adrian right and left catheter were used to access the coronary system. Pigtail was used to access the left ventricular cavity. Left ventriculogram was done At the end of the procedure the sheath was removed. 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 Otherwise mild to moderate coronary artery disease nonobstructive disease 3. Normal left ventricular size and systolic function estimated ejection fraction 60 percent DISCUSSION AND RECOMMENDATION: Patient had elevated troponin probably secondary to tachycardia, does not require any intervention. Continue with medical therapy. If patient continued to have recurrent palpitation tachycardia we'll consider referral for EP evaluation Anesthesia Type: Conscious Sedation Estimated blood loss (mL): 15 ml Contrast Amount: 40 ml Total Radiation Dose: 102 mGy Post-Procedure Diagnosis Post-operative diagnosis: Chest pain Type II myocardial infarction due to increased demand Paroxysmal supraventricular tachycardia Hypertension Palpitation ANDRE REMY MD May 03, 2019 10:34 POS
[2019-05-03] MEDS ORDERED: ASPI-983 PO (10:35)
--- NOTE | 2019-05-03 10:36 | Discharge Inst-Post CATH ---
Discharge Inst-CATH/EP Problems Reviewed?: Yes Post Cardiac Cath/EP D/C Inst Follow Up/Plan Appointment with Dr. REMY's office in 2-4 weeks <b>CARDIAC CATH/EP PROCEDURE DISCHARGE INSTRUCTIONS</b> ACTIVITY * Go Home directly and rest. * Limit activity of the leg (or wrist if it was used) for 7 days including aerobics, swimming, jogging, bicycling, etc. * Restrict stair-climbing for 7 days if possible, if not, climb up with your non-cath leg, then bring together on the same step. * Avoid lifting, pushing, pulling or excessive movement of the affected extremity for 7 days. * Customary sexual activity may be resumed after 2 days-use caution not to use a position that strains or causes pain to the affected extremity. * No driving for 24 hours. * NO SMOKING. * Avoid straining for bowel movements for 7 days. * Gentle walking on level ground is allowed. * Returning to work will depend on the type of procedure and the results. Your doctor will discuss this with you. CALL YOUR DOCTOR FOR ANY OF THE FOLLOWING: *If bleeding from the puncture site occurs- Apply gentle pressure to site with clean cloth and call your doctor or EMS. * If a knot or lump forms under the skin, increases in size, or causes pain. * If bruising appears to be worsening or moving further down your leg instead of disappearing. * Temperature above 101 F. CARE OF YOUR GROIN INCISION; * Bruising or purple discoloration of the skin near the puncture site is common. * You may shower only, no bathtub bathing for 5 days. Be careful to avoid slipping as your leg may feel stiff. * If a closure device was used on your femoral artery, please see the attached guide regarding care of the device and your leg. * Leave dressing on FOR 24 hours. CARE OF YOUR WRIST INCISION; * Bruising or purple discoloration of the skin near the puncture site is common. * You may shower. * DO NOT submerge wrist. * Leave dressing on FOR 24 hours. ANDRE REMY MD May 03, 2019 10:36 POS
--- NOTE | 2019-05-03 10:46 | NUR ---
PT BACK TO ROOM VIA BED ACCOMPANIED BY SHIP MANAGER STAFF AND PT FAMILY. PT INSTRUCTED TO LAY FLAT. RIGHT GROIN SITE DRY AND INTACT, DENIES C/O OR NEEDS. CALL LIGHT WITHIN REACH, WILL CONTINUE TO MONITOR.
[2019-05-03] MEDS ORDERED: IBUP-30 PO (11:06)
== END 2019-05-03 15:25 | disposition home or self-care (01) ==
LOC: EDUNIT# 19:46 → ER 19:48 → UNDOADMOB 21:20 → CSD 21:20 → CATH 22:30 → CSD 22:30 → UNDODISOB 05-03 15:25 → CATH 05-03 15:25
PROVIDERS: ATTEND Internal Medicine Cardiovascular Disease
DX: I21.A1 Myocardial infarction type 2 (principal); I25.110 Atherosclerotic heart disease of native coronary artery with unstable angina pectoris; I47.1 Supraventricular tachycardia; I10 Essential (primary) hypertension; R00.2 Palpitations; E78.5 Hyperlipidemia, unspecified; G43.909 Migraine, unspecified, not intractable, without status migrainosus; M81.0 Age-related osteoporosis without current pathological fracture; F41.9 Anxiety disorder, unspecified; I48.91 Unspecified atrial fibrillation; Z88.2 Allergy status to sulfonamides; Z88.5 Allergy status to narcotic agent; Z79.899 Other long term (current) drug therapy; Z86.010 Personal history of colon polyps; M19.91 Primary osteoarthritis, unspecified site; H93.12 Tinnitus, left ear; Z23 Encounter for immunization
CPT/HCPCS: 36415; 71045; 80053; 80061; 83735; 83874; 84484; 85025; 85379; 85610; 85730; 93005; 93041; 93458; 96361; 96372; 96374

== ENCOUNTER 2019-06-04 09:00 | Outpatient (RCR) | payer BC ==
[~2019-06-04 09:00] MED LIST changes: +ASPI-808 PO; +ASPI-983 PO; +CHOL500050 PO; +CYAN100015 SL; +CYAN100081 PO; +CYAN250014 PO; +IBUP-30 PO; +VERA120C2 PO
== END 2019-09-02 | disposition home or self-care (01) ==
LOC: CARD 09:00
PROVIDERS: ATTEND Physician Assistant
DX: I07.1 Rheumatic tricuspid insufficiency (principal); I49.3 Ventricular premature depolarization; R00.2 Palpitations; Z82.49 Family history of ischemic heart disease and other diseases of the circulatory system

== ENCOUNTER → 2019-12-02 | Outpatient (CLI) | payer MEDICARE, OTHER ==
--- NOTE | 2019-12-02 09:55 | Diagnostic Imaging Report ---
PROCEDURE: CT head without contrast. TECHNIQUE: Multiple contiguous axial images were obtained through the brain without the use of intravenous contrast. Auto Exposure Controls were utilized during the CT exam to meet ALARA standards for radiation dose reduction. INDICATION: Severe headaches for 2 months. CORRELATION is made with prior head CT from 09/30/2015. Ventricles and sulci are within normal limits. No sulcal effacement or midline shift is identified. No acute intra-axial or extra-axial hemorrhage is detected. Cisterns are patent. Visualized paranasal sinuses are clear. IMPRESSION: No acute intracranial process is detected. Dictated by: Dictated on workstation # [id number]
== END ==
LOC: RAD 09:39
PROVIDERS: ATTEND Nurse Practitioner Family
DX: R51 Headache (principal)
CPT/HCPCS: 70450

== ENCOUNTER 2020-06-21 22:23 | Emergency (ER) | payer MEDICARE, OTHER ==
[~2020-06-21] VITALS: Ht 153 cm; Wt 52.6 kg
[~2020-06-21 22:23] MED LIST changes: +ASPI-1238 PO; -ASPI-983 PO
--- NOTE | 2020-06-21 22:47 | ED Chest Pain ---
General Chief Complaint: Chest Pain Stated Complaint: HIGH HEART RATE/CHEST PAIN Nursing Triage Note: tachycardia Nursing Sepsis Screen: No Definite Risk Source: patient Exam Limitations: no limitations History of Present Illness Date Seen by Provider: Jun 21, 2020 Time Seen by Provider: 22:46 Initial Comments Patient is a 70-year-old female who presents to the emergency room today with a chief complaint of palpitations. Patient states that she was bending over to lift something off the floor at around 9:30 PM this evening when she felt a hale dden onset of chest discomfort with palpitations and shortness of breath. Patient states that she became nauseated at that time. She states she has had a history of rhythm disturbance in the past. Per review of the medical record the patient had cardiac catheterization in April 2019 which showed mild obstructive disease that did not require any intervention. Patient denies any recent illnesses such as fevers, chills, productive cough. No GI or symptoms. Patient states that she saw heart rates as high as 200 at home and as low as 50 during the course of this event. Patient states that she tried cold water to the face and tried to make herself sneeze to try to get herself out of the heart rhythm. She is not currently having any chest pain. She is not on any medications for atrial fibrillation. Dr. Zuñiga is her style advisor. All other review of systems reviewed and negative except as stated. Timing/Duration: 1-3 hours Severity/Quality: moderate Location: substernal (Palpitations) Radiation: no radiation Activities at Onset: none Prior CP/Workup: cardiac cath ASA po CHOPPING MACHINE OPERATOR: No NTG SL CHOPPING MACHINE OPERATOR: No Associated Symptoms: denies symptoms Allergies and Home Medications Allergies Coded Allergies: Sulfa (Sulfonamide Antibiotics) (Unverified Allergy, Severe, RASH, 12/02) codeine (Unverified Allergy, Severe, SOA, 12/03/11) Uncoded Allergies: PCN (Allergy, Intermediate, PT. TOOK WHEN YOUNGER AND PASSED OUT, 12/03/11) Home Medications Alprazolam 0.5 Mg Tablet, 0.5 MG PO DAILY, (Reported) Alprazolam 0.5 Mg Tablet, 1.5 MG PO HS, (Reported) TAKES 3 (0.5MG) TABLETS Aspirin 81 Mg Tablet., 81 MG PO DAILY Prescribed by: ANDRE ZUÑIGA on 05/03/19 1035 Cholecalciferol (Vitamin D3) 5,000 Unit Capsule, 5,000 UNIT PO DAILY, (Reported) Cyanocobalamin (Vitamin B-12) 1,000 Mcg Tab.subl, 2,000 MCG SL DAILY, (Reported) Verapamil HCl 120 Mg Cap24h.pel, 120 MG PO HS, (Reported) Patient Home Medication List Home Medication List Reviewed: Yes Review of Systems Review of Systems Constitutional: see HPI EENTM: No Symptoms Reported Cardiovascular: Irregular Heart Rate, Palpitations Gastrointestinal: Nausea Genitourinary: No Symptoms Reported Musculoskeletal: no symptoms reported Skin: no symptoms reported Psychiatric/Neurological: Anxiety All Other Systems Reviewed Negative Unless Noted: Yes Past Ejjvbcg-Kawxcu-Krjeyx Hx Patient Social History Alcohol Use: Denies Use Recreational Drug Use: No Smoking Status: Never a Smoker 2nd Hand Smoke Exposure: No Recent Foreign Travel: No Contact w/Someone Who Travel: No Recent Infectious Disease Expo: No Recent Hopitalizations: No Immunizations Up To Date Tetanus Booster (TDap): Unknown PED Vaccines UTD: No Date of Pneumonia Vaccine: Oct 04, 2015 Seasonal Allergies Seasonal Allergies: No Past Medical History Surgeries: Yes (breast biopsy) Lumpectomy, Tonsillectomy Respiratory: No Cardiac: Yes Atrial Fibrillation Neurological: Yes Headaches /Migraines Reproductive Disorders: No Female Reproductive Disorders: Denies Sexually Transmitted Disease: No HIV/AIDS: No Genitourinary: No Gastrointestinal: Yes Polyps Musculoskeletal: Yes Arthritis Endocrine: No HEENT: No Cancer: Yes (precancerous mole removed from face) Skin Psychosocial: No Integumentary: No Blood Disorders: No Adverse Reaction/Blood Tranf: No Family Medical History Completed stroke 19 MOTHER, , Age:60 years and older G8 BROTHER, , Age:40 Coronary thrombosis 19 MOTHER, , Age:60 years and older Dementia 19 MOTHER, , Age:60 years and older Diabetes mellitus 19 MOTHER, , Age:60 years and older (mother and MGM) Glaucoma 19 MOTHER, , Age:60 years and older Hypertension 19 MOTHER, , Age:60 years and older G8 SISTER Myocardial infarction G8 BROTHER, , Age:40 No Pertinent Family Hx Physical Exam Vital Signs Vital Signs - First Documented 06/21/20 22:28 Temp 36.8 Pulse 132 Resp 24 B/P (MAP) 154/112 (126) Pulse Ox 96 O2 Delivery Room Air Capillary Refill : Less Than 3 Seconds Height, Weight, BMI Height: 5'0.00" Weight: 127lbs. 0.0oz. 57.365228my; 22.00 BMI Method:Estimated General Appearance: No Apparent Distress, WD/WN HEENT: Normal ENT Inspection Neck: Supple Respiratory: Lungs Clear, Normal Breath Sounds, No Accessory Muscle Use, No Respiratory Distress Cardiovascular: Irregularly Irregular, Tachycardia Gastrointestinal: Non Tender, Soft Extremity: Normal Capillary Refill, Normal Inspection, Normal Range of Motion, Non Tender, No Pedal Edema Neurologic/Psychiatric: Alert, Oriented x3, No Motor/Sensory Deficits, Normal Mood/Affect Skin: Normal Color, Warm/Dry Progress/Results/Core Measures Results/Orders Lab Results Laboratory Tests Test 06/21/20 22:30 Range/Units White Blood Count 8.7 4.3-11.0 10^3/uL Red Blood Count 4.51 3.80-5.11 10^6/uL Hemoglobin 13.7 11.5-16.0 g/dL Hematocrit 43 35-52 % Mean Corpuscular Volume 95 80-99 fL Mean Corpuscular Hemoglobin 30 25-34 pg Mean Corpuscular Hemoglobin Concent 32 32-36 g/dL Red Cell Distribution Width 13.2 10.0-14.5 % Platelet Count 338 130-400 10^3/uL Mean Platelet Volume 10.6 9.0-12.2 fL Immature Granulocyte % (Auto) 0 % Neutrophils (%) (Auto) 49 42-75 % Lymphocytes (%) (Auto) 37 12-44 % Monocytes (%) (Auto) 9 0-12 % Eosinophils (%) (Auto) 4 0-10 % Basophils (%) (Auto) 1 0-10 % Neutrophils # (Auto) 4.2 1.8-7.8 10^3/uL Lymphocytes # (Auto) 3.2 1.0-4.0 10^3/uL Monocytes # (Auto) 0.8 0.0-1.0 10^3/uL Eosinophils # (Auto) 0.4 H 0.0-0.3 10^3/uL Basophils # (Auto) 0.1 0.0-0.1 10^3/uL Immature Granulocyte # (Auto) 0.0 0.0-0.1 10^3/uL Sodium Level 141 135-145 MMOL/L Potassium Level 3.5 L 3.6-5.0 MMOL/L Chloride Level 101 98-107 MMOL/L Carbon Dioxide Level 21 21-32 MMOL/L Anion Gap 19 H 5-14 MMOL/L Blood Urea Nitrogen 16 7-18 MG/DL Creatinine 0.85 0.60-1.30 MG/DL Estimat Glomerular Filtration Rate > 60 BUN/Creatinine Ratio 19 Glucose Level 141 H 70-105 MG/DL Calcium Level 9.7 8.5-10.1 MG/DL Total Creatine Kinase 62 29-168 U/L Creatine Kinase MB 1.0 <6.6 NG/ML Troponin I < 0.028 <0.028 NG/ML Thyroid Stimulating Hormone (TSH) 2.73 0.35-4.94 UIU/ML My Orders Orders - JIAN ANDINO MD Ed Iv/Invasive Line Start (06/21/20 22:47) Cbc With Automated Diff (06/21/20 22:47) Basic Metabolic Panel (06/21/20 22:47) Thyroid Stimulating Hormone (06/21/20 22:47) Ekg Tracing (06/21/20 22:47) Chest 1 View, Ap/Pa Only (06/21/20 22:47) Alprazolam Tablet (Xanax Tablet) (06/21/20 23:00) Aspirin Chewable Tablet (Baby Aspirin Ch (06/22/20 09:00) Troponin I (06/21/20 22:47) Creatine Kinase (06/21/20 22:47) Creatine Kinase Mb (06/21/20 22:47) Ns Iv 1000 Ml (Sodium Chloride 0.9%) (06/21/20 23:00) Aspirin Chewable Tablet (Baby Aspirin Ch (06/21/20 22:51) Diltiazem Injection (Cardizem Injection) (06/21/20 23:30) Diltiazem Injection (Cardizem Injection) (06/22/20 00:15) Apixaban Tablet (Eliquis Tablet) (06/22/20 00:15) Ns Iv 500 Ml (Sodium Chloride 0.9%) (06/22/20 00:30) Diltiazem Cd 24 Hr Capsule (Cardizem Cd (06/22/20 09:00) Diltiazem Cd 24 Hr Capsule (Cardizem Cd (06/22/20 00:21) Medications Given in ED Current Medications Medications Dose Ordered Sig/Val Route Start Time Stop Time Status Last Admin Dose Admin Alprazolam 0.5 mg ONCE PRN PO 06/21/20 23:00 06/21/20 22:55 0.5 MG Apixaban 5 mg ONCE ONCE PO 06/22/20 00:15 06/22/20 00:16 DC 06/22/20 00:27 5 MG Diltiazem HCl 10 mg ONCE ONCE IVP 06/21/20 23:30 06/21/20 23:31 DC 06/21/20 23:26 10 MG Diltiazem HCl 10 mg ONCE ONCE IVP 06/22/20 00:15 06/22/20 00:16 DC 06/22/20 00:27 10 MG Vital Signs/I&O 06/21/20 06/21/20 22:28 22:28 Temp 36.8 Pulse 132 Resp 24 B/P (MAP) 154/112 (126) Pulse Ox 96 O2 Delivery Room Air Room Air 06/22/20 00:00 Intake Total 1000 ml Balance 1000 ml Blood Pressure Mean: 126 Progress Progress Note : Time: 00:56 Progress Note Patient patient's heart rate is down to 86 rate controlled atrial fibrillation. She has been given a total of 20 mg of Cardizem IV and 120 mg p.o. Patient is also given Eliquis this evening. She will be discharged home on Cardizem p.o. and Eliquis. She will be instructed to call Dr. Zuñiga's office in the morning for a follow-up appointment. Blood pressure is within normal range. Patient's labs have been reviewed and are within normal limits. Patient clinically looks very well. She is ambulated to the restroom several times. She has been educated about the Eliquis and the Cardizem. She will call tomorrow Initial ECG Impression Date: Jun 21, 2020 Initial ECG Impression Time: 22:30 Initial ECG Rate: 151 Initial ECG Rhythm: A Fib/Flutter Initial ECG Impression: Nonspecific Changes Departure Impression Primary Impression: Atrial fibrillation with rapid ventricular response Disposition: 01 HOME, SELF-CARE Condition: Stable Departure-Patient Inst. Decision time for Depature: 01:06 Referrals: AIDAN PAREDES MD (PCP/Family) Primary Care Physician ANDRE ZUÑIGA MD Patient Instructions: Atrial Fibrillation (DC) Add. Discharge Instructions: Stop your verapamil and continue the cardizem I have prescribed daily. I have also prescribed you ELiquis, this is a blood thinner, you will need to take this twice a day. Please call Dr Zuñiga's office tomorrow and follow up this week. If you have a return of palpitations, become short of breath or have chest pain, please come back to the Emergency Department for re-evaluation. Scripts Diltiazem HCl (Cardizem Cd) 120 Mg Cap.er.24h 120 MG PO DAILY, #30 CAP Prov: JIAN ANDINO MD 06/22/20 Apixaban (Eliquis) 5 Mg Tablet 5 MG PO BID, #60 TAB Prov: JIAN ANDINO MD 06/22/20 Copy Copies To 1: AIDAN PAREDES MD; ANDRE ZUÑIGA MD Copies To 2: ANDRE ZUÑIGA MD, KATHRYN M MD Jun 21, 2020 22:47
[2020-06-21] MEDS ORDERED: ASPIRIN 81 MG CHEW (CHILDREN'S ASA) ONE (22:51)
[2020-06-21] MEDS ORDERED: ALPRAZolam 0.5 MG (XANAX) TAB PO PRN (23:00)
[2020-06-21] MEDS ORDERED: NS IV 1000 ML 1,000 ML IV SCH (23:00)
[2020-06-21 23:01] LABS: BASOPHILS # (AUTO) 0.1 10^3/uL (0.0-0.1); BASOPHILS % (AUTO) 1 % (0-10); EOSINOPHILS # (AUTO) 0.4 10^3/uL (0.0-0.3); EOSINOPHILS % (AUTO) 4 % (0-10); HEMATOCRIT 43 % (35-52); HEMOGLOBIN 13.7 g/dL (11.5-16.0); LYMPHOCYTES # (AUTO) 3.2 10^3/uL (1.0-4.0); LYMPHOCYTES % (AUTO) 37 % (12-44); MEAN CORPUSCULAR HEMOGLOBIN 30 pg (25-34); MEAN CORPUSCULAR HGB CONC 32 g/dL (32-36); MEAN CORPUSCULAR VOLUME 95 fL (80-99); MEAN PLATELET VOLUME 10.6 fL (9.0-12.2); MONOCYTES # (AUTO) 0.8 10^3/uL (0.0-1.0); MONOCYTES % (AUTO) 9 % (0-12); NEUTROPHILS # (AUTO) 4.2 10^3/uL (1.8-7.8); NEUTROPHILS % (AUTO) 49 % (42-75); PLATELET COUNT 338 10^3/uL (130-400); WHITE BLOOD COUNT 8.7 10^3/uL (4.3-11.0)
[2020-06-21 23:03] LABS: CHLORIDE 101 MMOL/L (98-107); POTASSIUM 3.5 MMOL/L (3.6-5.0); SODIUM 141 MMOL/L (135-145)
[2020-06-21 23:05] LABS: CALCIUM 9.7 MG/DL (8.5-10.1); GLUCOSE 141 MG/DL (70-105)
[2020-06-21 23:07] LABS: CARBON DIOXIDE 21 MMOL/L (21-32)
[2020-06-21 23:09] LABS: CREATININE SERUM 0.85 MG/DL (0.60-1.30); GFR ESTIMATED > 60
[2020-06-21 23:10] LABS: BUN/CREATININE RATIO 19
[2020-06-21 23:12] LABS: CREATINE KINASE 62 U/L (29-168)
[2020-06-22] MEDS ORDERED: APIXABAN 5 MG (ELIQUIS) TABLET PO ONE (00:15)
[2020-06-22] MEDS ORDERED: dilTIAZem120 MG (CARDIZEM CD) CAP PO ONE (00:21)
[2020-06-22] MEDS ORDERED: NS IV 500 ML 500 ML IV SCH (00:30)
[2020-06-22] MEDS ORDERED: DILT120C82 PO (01:03)
[2020-06-22] MEDS ORDERED: APIX5TAB PO (01:03)
[2020-06-22 01:15] VITALS: BP 100/83
--- NOTE | 2020-06-22 06:56 | Diagnostic Imaging Report ---
Indication: Chest pain and tachycardia FINDINGS: Frontal view chest demonstrate the lungs to be clear. The heart, mediastinum and pulmonary vascularity are normal. There are no pleural effusions. IMPRESSION: Stable normal chest. Dictated by: Dictated on workstation # [id number]
[2020-06-22] MEDS ORDERED: dilTIAZem120 MG (CARDIZEM CD) CAP PO SCH (09:00)
[2020-06-22] MEDS ORDERED: ASPIRIN 81 MG CHEW (CHILDREN'S ASA) PO SCH (09:00)
== END 2020-06-22 01:14 | disposition home or self-care (01) ==
LOC: EDUNIT# 22:23 → ER 22:26
DX: I48.91 Unspecified atrial fibrillation (principal); Z79.82 Long term (current) use of aspirin; Z88.2 Allergy status to sulfonamides; Z88.0 Allergy status to penicillin; Z85.828 Personal history of other malignant neoplasm of skin; Z82.49 Family history of ischemic heart disease and other diseases of the circulatory system
CPT/HCPCS: 36415; 71045; 80048; 82550; 82553; 84443; 84484; 85025; 93005

== ENCOUNTER 2020-10-16 08:14 | Outpatient (RCR) | payer MEDICARE, OTHER ==
[~2020-10-16 08:14] MED LIST changes: +APIX5TAB PO; +DILT120C82 PO; +NAPR-1088 PO; -NAPR250T6 PO
== END 2020-10-31 10:21 | disposition home or self-care (01) ==
PROVIDERS: ATTEND Nurse Practitioner Family
DX: M54.2 Cervicalgia (principal); M54.6 Pain in thoracic spine; R20.8 Other disturbances of skin sensation

== ENCOUNTER → 2020-12-07 | Outpatient (CLI) | payer MEDICARE, OTHER ==
--- NOTE | 2020-12-07 11:11 | Diagnostic Imaging Report ---
Clinical indication: Patient has been having headaches. Exam: MRI of the brain performed without IV contrast. Sequences include axial DWI, ADC map, axial T2, axial FLAIR, axial T1, axial gradient echo, and sagittal T1. Comparison: Head CT without contrast dated 12/02/2019. Findings: There is no evidence of acute cerebral infarct, intracranial hemorrhage, or gross mass effect. The brain parenchymal volume appears appropriate for patient's age. There are multiple focal areas of high T2 signal white matter changes involving both cerebral hemispheres, likely representing chronic small vessel ischemic disease. There is normal bailey-white matter distinction. There is no significant midline shift or herniation. The [place] vascular structures show no gross abnormality as visualized. The pituitary gland, sella, and suprasellar regions are unremarkable as visualized. There is no evidence of hydrocephalus. The basal cisterns are unremarkable. The skull, extracranial soft tissue, and orbits are unremarkable. There is mild mucosal thickening involving ethmoid sinus. There is small amount of fluid in the left mastoid air cells. IMPRESSION: 1: Mild age-related brain parenchymal changes with no evidence of acute intracranial process. 2: There is mild ethmoid sinus disease. There is small amount of fluid in the left mastoid air cells. Dictated by: Dictated on workstation # [id number]
== END ==
LOC: RAD 09:30
PROVIDERS: ATTEND Family Medicine
DX: G31.1 Senile degeneration of brain, not elsewhere classified (principal); G43.909 Migraine, unspecified, not intractable, without status migrainosus
CPT/HCPCS: 70551

== ENCOUNTER 2021-02-07 19:33 | Emergency (ER) | payer MEDICARE, OTHER ==
[~2021-02-07] VITALS: Ht 152 cm; Wt 52.6 kg
--- NOTE | 2021-02-07 19:52 | ED Chest Pain ---
General Chief Complaint: Chest Pain Stated Complaint: CHEST PAIN Source: patient (SOMEWHAT VAGUE ABOUT HER PAIN COMPLAINT) History of Present Illness Date Seen by Provider: Feb 07, 2021 Time Seen by Provider: 19:45 Initial Comments PT ARRIVES VIA POV FROM HOME C/O CHEST PAIN --IN CENTER/LOWER STERNUM RATES PAIN 01/23 STATES "I HAVE CHEST PAIN EVERY DAY" "IF I HAVE A MIGRAINE I HAVE CHEST PAIN" --GOES ON AT LENGTH ABOUT HER MIGRAINES, BUT SHE DOES NOT HAVE A HEADACHE NOW. STATES SHE HAD "BAD CHEST PAIN" THIS AM, TOOK HER NORMAL VERAPAMIL, XANAX AND TYLENOL, ALONG WITH ELIQUIS STATES THEN IT GOT "REAL BAD AGAIN" AROUND 1900, DID NOT TAKE ANYTHING ELSE, AND CAME HERE INSTEAD STATES THIS IS NO DIFFERENT THAN PAIN SHE NORMALLY HAS NO SLIGHT SHORTNESS OF BREATH C/O SLIGHT NAUSEA, NO VOMITING-NORMAL WHEN SHE HAS MIGRAINES C/O ONGOING "SKIN SENSITIVITY AND BURNING" ALL ACROSS UPPER ABDOMEN WHEN THIS HAPPENS NO SWEATS NO DIZZINESS OR SYNCOPE NO COUGH, FEVER OR RECENT ILLNESS HAS HISTORY OF ATRIAL FIBRILLATION, BUT HAS NOT HAD ANY PALPITATIONS TODAY STATES "IT'S BETTER AFTER I GOT HERE AND I RELAXED" STATES SHE WALKS UP TO 2 HOURS A DAY HAS HAD BOTH MODERNA COVID-19 VACCINES, LAST ONE IN SEPTEMBER 2020 PCP: DR. 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 REMY--HAS NOT SEEN SINCE JUNE Allergies and Home Medications Allergies Coded Allergies: Sulfa (Sulfonamide Antibiotics) (Unverified Allergy, Severe, RASH, ) codeine (Unverified Allergy, Severe, SOA, 12/03/11) Uncoded Allergies: PCN (Allergy, Intermediate, PT. TOOK WHEN YOUNGER AND PASSED OUT, 12/03/11) Home Medications Alprazolam 0.5 Mg Tablet, 0.5 MG PO DAILY, (Reported) Alprazolam 0.5 Mg Tablet, 1.5 MG PO HS, (Reported) TAKES 3 (0.5MG) TABLETS Apixaban 5 Mg Tablet, 5 MG PO BID Prescribed by: JIAN ANDINO on 06/22/20 0103 Aspirin 81 Mg Tablet.dr, 81 MG PO DAILY Prescribed by: ANDRE REMY on 05/03/19 1035 Cholecalciferol (Vitamin D3) 5,000 Unit Capsule, 5,000 UNIT PO DAILY, (Reported) Cyanocobalamin (Vitamin B-12) 1,000 Mcg Tab.subl, 2,000 MCG SL DAILY, (Reported) Diltiazem HCl 120 Mg Cap.er.24h, 120 MG PO DAILY Prescribed by: JIAN ANDINO on 06/22/20 0103 Verapamil HCl 120 Mg Cap24h.pel, 120 MG PO HS, (Reported) Patient Home Medication List Home Medication List Reviewed: Yes Review of Systems Review of Systems Constitutional: no symptoms reported EENTM: No Symptoms Reported Respiratory: No Symptoms Reported Cardiovascular: See HPI, Chest Pain; Denies Edema, Denies Irregular Heart Rate, Denies Lightheadedness, Denies Palpitations, Denies Syncope Gastrointestinal: See HPI, Nausea; Denies Vomiting Genitourinary: No Symptoms Reported Musculoskeletal: no symptoms reported Skin: no symptoms reported; No rash Psychiatric/Neurological: See HPI, Anxiety Endocrine: No Symptoms Reported Hematologic/Lymphatic: No Symptoms Reported Past Zifghyt-Dihdrh-Srssst Hx Patient Social History Tobacco Use?: No Substance use?: No Alcohol Use?: No Immunizations Up To Date Tetanus Booster (TDap): Unknown PED Vaccines UTD: No Influenza Vaccine Up-to-Date: Yes; Up-to-Date Seasonal Allergies Seasonal Allergies: No Past Medical History Surgery/Hospitalization HX: CARDIAC CATH--NO INTERVENTION BREAST BIOPSY Surgeries: Yes (breast biopsy) Breast, Lumpectomy, Tonsillectomy Respiratory: No Cardiac: Yes Atrial Fibrillation Neurological: Yes Headaches /Migraines Reproductive Disorders: No Female Reproductive Disorders: Denies TERRAZZO LAYER History: Menopausal Sexually Transmitted Disease: No HIV/AIDS: No Genitourinary: No Gastrointestinal: Yes Polyps Musculoskeletal: Yes Arthritis Endocrine: No HEENT: No Cancer: Yes (precancerous mole removed from face) Skin Psychosocial: Yes Anxiety Integumentary: No Blood Disorders: No Adverse Reaction/Blood Tranf: No Family Medical History Completed stroke 19 MOTHER, , Age:60 years and older G8 BROTHER, , Age:40 Coronary thrombosis 19 MOTHER, , Age:60 years and older Dementia 19 MOTHER, , Age:60 years and older Diabetes mellitus 19 MOTHER, , Age:60 years and older (mother and MGM) Glaucoma 19 MOTHER, , Age:60 years and older Hypertension 19 MOTHER, , Age:60 years and older G8 SISTER Myocardial infarction G8 BROTHER, , Age:40 No Pertinent Family Hx Physical Exam Vital Signs Vital Signs - First Documented Capillary Refill : Less Than 3 Seconds Height, Weight, BMI Height: 5'0.00" Weight: 127lbs. 0.0oz. 57.968374zg; 22.00 BMI Method:Estimated General Appearance: No Apparent Distress, WD/WN, Anxious, Thin Neck: Full Range of Motion, Normal Inspection, Non Tender, Supple; No Carotid Bruit, No JVD Respiratory: Chest Non Tender, Normal Breath Sounds, No Accessory Muscle Use, No Respiratory Distress Cardiovascular: Regular Rate, Rhythm, No Edema, No JVD, No Murmur, Normal Peripheral Pulses Gastrointestinal: Normal Bowel Sounds, No Organomegaly, No Pulsatile Mass, Non Tender, Soft Extremity: Normal Capillary Refill, Normal Inspection, Normal Range of Motion, Non Tender, No Calf Tenderness, No Pedal Edema Neurologic/Psychiatric: Alert, Oriented x3, No Motor/Sensory Deficits, preprint analyst II- XII Norm as Tested Skin: Normal Color, Warm/Dry; No Rash Progress/Results/Core Measures Results/Orders Lab Results Laboratory Tests Test 02/07/21 19:48 02/07/21 22:45 Range/Units White Blood Count 8.3 4.3-11.0 10^3/uL Red Blood Count 3.75 L 3.80-5.11 10^6/uL Hemoglobin 11.8 11.5-16.0 g/dL Hematocrit 36 35-52 % Mean Corpuscular Volume 96 80-99 fL Mean Corpuscular Hemoglobin 32 25-34 pg Mean Corpuscular Hemoglobin Concent 33 32-36 g/dL Red Cell Distribution Width 12.8 10.0-14.5 % Platelet Count 259 130-400 10^3/uL Mean Platelet Volume 9.5 9.0-12.2 fL Immature Granulocyte % (Auto) 0 % Neutrophils (%) (Auto) 57 42-75 % Lymphocytes (%) (Auto) 32 12-44 % Monocytes (%) (Auto) 8 0-12 % Eosinophils (%) (Auto) 2 0-10 % Basophils (%) (Auto) 1 0-10 % Neutrophils # (Auto) 4.7 1.8-7.8 10^3/uL Lymphocytes # (Auto) 2.7 1.0-4.0 10^3/uL Monocytes # (Auto) 0.6 0.0-1.0 10^3/uL Eosinophils # (Auto) 0.2 0.0-0.3 10^3/uL Basophils # (Auto) 0.1 0.0-0.1 10^3/uL Immature Granulocyte # (Auto) 0.0 0.0-0.1 10^3/uL Prothrombin Time 14.2 12.2-14.7 SEC INR Comment 1.1 0.8-1.4 Activated Partial Thromboplast Time 39 H 24-35 SEC Sodium Level 132 L 135-145 MMOL/L Potassium Level 4.0 3.6-5.0 MMOL/L Chloride Level 100 98-107 MMOL/L Carbon Dioxide Level 25 21-32 MMOL/L Anion Gap 7 5-14 MMOL/L Blood Urea Nitrogen 16 7-18 MG/DL Creatinine 0.95 0.60-1.30 MG/DL Estimat Glomerular Filtration Rate 58 BUN/Creatinine Ratio 17 Glucose Level 93 70-105 MG/DL Calcium Level 9.1 8.5-10.1 MG/DL Corrected Calcium 9.1 8.5-10.1 MG/DL Magnesium Level 1.9 1.6-2.4 MG/DL Total Bilirubin 0.7 0.1-1.0 MG/DL Aspartate Amino Transf (AST/SGOT) 45 H 5-34 U/L Alanine Aminotransferase (ALT/SGPT) 69 H 0-55 U/L Alkaline Phosphatase 44 40-136 U/L Total Creatine Kinase 60 29-168 U/L Creatine Kinase MB 0.6 <6.6 NG/ML Myoglobin 15.9 10.0-92.0 NG/ML Troponin I < 0.028 < 0.028 <0.028 NG/ML B-Type Natriuretic Peptide 25.7 <100.0 PG/ML Total Protein 6.7 6.4-8.2 GM/DL Albumin 4.0 3.2-4.5 GM/DL Amylase Level 82 25-125 U/L Lipase 104 H 8-78 U/L My Orders Orders - NATALYA SCHAFER DO Ed Iv/Invasive Line Start (02/07/21 19:49) Ekg Tracing (02/07/21 19:49) O2 (02/07/21 19:49) Monitor-Rhythm Ecg Trace Only (02/07/21 19:49) Cbc With Automated Diff (02/07/21 19:49) Magnesium (02/07/21 19:49) Chest 1 View, Ap/Pa Only (02/07/21 19:49) Ekg Tracing (02/07/21 19:49) Comprehensive Metabolic Panel (02/07/21 19:49) Myoglobin Serum (02/07/21 19:49) Protime With Inr (02/07/21 19:49) Partial Thromboplastin Time (02/07/21 19:49) O2 (02/07/21 19:49) Ed Iv/Invasive Line Start (02/07/21 19:49) Creatine Kinase (02/07/21 19:49) Creatine Kinase Mb (02/07/21 19:49) Lipase (02/07/21 19:49) Amylase (02/07/21 19:49) BNP (02/07/21 19:49) Nitroglycerin 0.4 Mg Btl 25's (Nitrostat (02/07/21 20:00) Aspirin Chewable Tablet (Baby Aspirin Ch (02/07/21 20:00) Troponin I (02/07/21 19:48) Aspirin Chewable Tablet (Baby Aspirin Ch (02/07/21 20:09) Ketorolac Injection (Toradol Injection) (02/07/21 21:00) Ekg Tracing (02/07/21 22:23) Troponin I (02/07/21 22:23) Medications Given in ED Current Medications Medications Dose Ordered Sig/Val Route Start Time Stop Time Status Last Admin Dose Admin Aspirin 324 mg ONCE ONCE PO 02/07/21 20:00 02/07/21 20:01 DC 02/07/21 19:58 324 MG Ketorolac Tromethamine 30 mg ONCE ONCE IVP 02/07/21 21:00 02/07/21 21:01 DC 02/07/21 22:04 30 MG Nitroglycerin 0.4 mg UD PRN SL 02/07/21 20:00 02/07/21 23:58 DC 02/07/21 19:58 0.4 MG Vital Signs/I&O 02/07/21 02/07/21 02/07/21 02/07/21 19:38 19:38 19:39 23:57 Temp 36.8 36.8 Pulse 67 63 Resp 20 20 B/P (MAP) 161/95 (117) 120/81 (117) Pulse Ox 96 97 98 O2 Delivery Room Air Room Air Room Air Room Air Progress Progress Note : Progress Note GIVEN ASPIRIN AND NTG X 1 WITH RELIEF OF PAIN "SHE THINKS" 2044--PT STATES SHE STILL HAS ALOT OF PAIN AROUND HER RIBS BILATERALLY--STATES THAT SHE HAS THIS ALL THE TIME. ORDERED TORADOL FOR PAIN --STATES THIS ALWAYS HELPS HER MIGRAINES TOO 2099--PT DECLINED TORADOL OR ANYTHING --STATES SHE FEELS FINE NOW AND DOESN'T NEED ANYTHING PT WOULD PERIODICALLY STATE THAT SHE "THINKS THAT HER PAIN IS COMING BACK", BUT THEN WOULD DECLINE ANY MEDICATION AND STATE THAT PAIN IS BETTER/GONE, THEN WOULD STATE HER RIBS HURT/SKIN LEWIS, WHICH IS CHRONIC / DAILY COMPLAINT--PT DID THIS MULTIPLE TIMES THROUGHOUT ER STAY PT OBSERVED IN ER AND REPEAT TROPONIN AND EKG DONE--BOTH UNCHANGED/NORMAL PT IS ANXIOUS TO GO HOME Initial ECG Impression Date: Feb 07, 2021 Initial ECG Impression Time: 19:42 Initial ECG Rate: 66 Initial ECG Rhythm: Normal Sinus Initial ECG Impression: Nonspecific Changes EKG : EKG Time: 22:45 Rate: 56 Rhythm: Normal Sinus ECG Comparisson: Unchanged Diagnostic Imaging Comments CXR--PER RADIOLOGIST REPORT AT 2013 FINDINGS: The lung volumes are mildly large. No focal consolidation is seen. No large pleural effusion or pneumothorax is seen. The cardiomediastinal silhouette is normal in size and contour. No acute osseous abnormality is seen. Findings appear stable since the prior exam. IMPRESSION: No acute pulmonary abnormality seen. Reviewed: Reviewed by Me Departure Communication (Admissions) [id number]--SPOKE WITH JESSIE PABLO TO SEND PT HOME, AND PT CAN CALL IN AM FOR FOLLOW UP VISIT IN THE OFFICE. Impression Primary Impression: Chest pain Disposition: HOME, SELF-CARE Condition: Improved Departure-Patient Inst. Decision time for Depature: 23:35 Referrals: AIDAN PAREDES MD (PCP) Primary Care Physician ANDRE REMY MD Patient Instructions: Chest Pain, Adult ED Add. Discharge Instructions: HOME, REST CONTINUE YOUR REGULAR MEDICATIONS PRESCRIBED CALL DR. REMY'S OFFICE IN THE MORNING TO SCHEDULE FOLLOW UP APPOINTMENT All discharge instructions reviewed with patient and/or family. Voiced understanding. NATALYA SCHAFER DO Feb 07, 2021 19:52
[2021-02-07] MEDS ORDERED: NITROGLYCERIN 0.4 MG SL TABS BTL 25'S SL PRN (20:00)
[2021-02-07] MEDS ORDERED: ASPIRIN 81 MG CHEW (CHILDREN'S ASA) PO ONE (20:00)
[2021-02-07 20:01] LABS: BASOPHILS # (AUTO) 0.1 10^3/uL (0.0-0.1); BASOPHILS % (AUTO) 1 % (0-10); EOSINOPHILS # (AUTO) 0.2 10^3/uL (0.0-0.3); EOSINOPHILS % (AUTO) 2 % (0-10); HEMATOCRIT 36 % (35-52); HEMOGLOBIN 11.8 g/dL (11.5-16.0); LYMPHOCYTES # (AUTO) 2.7 10^3/uL (1.0-4.0); LYMPHOCYTES % (AUTO) 32 % (12-44); MEAN CORPUSCULAR HEMOGLOBIN 32 pg (25-34); MEAN CORPUSCULAR HGB CONC 33 g/dL (32-36); MEAN CORPUSCULAR VOLUME 96 fL (80-99); MEAN PLATELET VOLUME 9.5 fL (9.0-12.2); MONOCYTES # (AUTO) 0.6 10^3/uL (0.0-1.0); MONOCYTES % (AUTO) 8 % (0-12); NEUTROPHILS # (AUTO) 4.7 10^3/uL (1.8-7.8); NEUTROPHILS % (AUTO) 57 % (42-75); PLATELET COUNT 259 10^3/uL (130-400); WHITE BLOOD COUNT 8.3 10^3/uL (4.3-11.0)
[2021-02-07 20:09] LABS: INR 1.1 (0.8-1.4); PROTHROMBIN TIME PATIENT 14.2 SEC (12.2-14.7)
[2021-02-07] MEDS ORDERED: ASPIRIN 81 MG CHEW (CHILDREN'S ASA) ONE (20:09)
--- NOTE | 2021-02-07 20:12 | Diagnostic Imaging Report ---
PATIENT HISTORY: Chest pain. TECHNIQUE: Single frontal view of the chest. COMPARISON: 06/21/2020. FINDINGS: The lung volumes are mildly large. No focal consolidation is seen. No large pleural effusion or pneumothorax is seen. The cardiomediastinal silhouette is normal in size and contour. No acute osseous abnormality is seen. Findings appear stable since the prior exam. IMPRESSION: No acute pulmonary abnormality seen. Dictated by: Dictated on workstation # [id number]
[2021-02-07 20:19] LABS: ALANINE AMINOTRANSFERASE 69 U/L (0-55); ALKALINE PHOSPHATASE 44 U/L (40-136); AMYLASE 82 U/L (25-125); BILIRUBIN,TOTAL 0.7 MG/DL (0.1-1.0); BUN/CREATININE RATIO 17; CALCIUM 9.1 MG/DL (8.5-10.1); CARBON DIOXIDE 25 MMOL/L (21-32); CHLORIDE 100 MMOL/L (98-107); CREATINE KINASE 60 U/L (29-168); CREATININE SERUM 0.95 MG/DL (0.60-1.30); GFR ESTIMATED 58; GLUCOSE 93 MG/DL (70-105); LIPASE 104 U/L (8-78); MAGNESIUM 1.9 MG/DL (1.6-2.4); SODIUM 132 MMOL/L (135-145); TOTAL PROTEIN 6.7 GM/DL (6.4-8.2)
[2021-02-07 20:26] LABS: CREATINE KINASE MB 0.6 NG/ML (<6.6)
[2021-02-07] MEDS ORDERED: KETOROLAC 30 MG/ML VIAL IVP ONE (21:00)
[2021-02-07 23:57] VITALS: BP 120/81
== END 2021-02-07 23:58 | disposition home or self-care (01) ==
LOC: EDUNIT# 19:33 → ER 19:35
DX: R07.9 Chest pain, unspecified (principal); I48.91 Unspecified atrial fibrillation; F41.9 Anxiety disorder, unspecified; Z79.82 Long term (current) use of aspirin; Z79.01 Long term (current) use of anticoagulants; Z79.899 Other long term (current) drug therapy
CPT/HCPCS: 36415; 71045; 80053; 82150; 82550; 82553; 83690; 83735; 83874; 83880; 84484; 85025; 85610; 85730; 93005; 93041; 96374

== ENCOUNTER → 2021-02-21 | Outpatient (CLI) | payer MEDICARE, OTHER ==
[~2021-02-21] VITALS: Ht 152 cm; Wt 42.0 kg
[~2021-02-21] MED LIST changes: +CATHETER FLUSH 10 ML SYR IV PRN
[2021-02-21 12:51] VITALS: BP 136/93
--- NOTE | 2021-02-22 07:54 | Cardiology Stress Test Report ---
Stress Test Report Date of Procedure/Referring: Date of Procedure: Feb 21, 2021 Dejah Carranza Admitting Physician Magda Velazco MD Indications: HTN Baseline Heart Rate: 73 Baseline Blood Pressure: Blood Pressure Systolic: 136 Blood Pressure Diastolic: 93 Vital Signs Date Time Temp Pulse Resp B/P (MAP) Pulse Ox O2 Delivery O2 Flow Rate FiO2 02/21/21 12:51 73 136/93 (107) Baseline Vital Signs Vital Signs Date Time Temp Pulse Resp B/P (MAP) Pulse Ox O2 Delivery O2 Flow Rate FiO2 02/21/21 12:51 73 136/93 (107) Baseline EKG: Baseline EKG: NSR Summary: After explaining the procedure and details to the patient, she signed the consent and was brought to the stress nuclear laboratory. Patient exercised on standard Billy protocol, EKG, heart rate and blood pressure were monitored continuously, resting and stress doses of radio tracer were injected, imaging was acquired and reviewed in the short axis, horizontal long axis and vertical long axis views Patient was able to exercise for a total of 5 minutes on Billy protocol, METs 7 Maximum heart rate 142 Maximum blood pressure 175/107 Stress EKG, Minimal nondiagnostic changes Recovery EKG, Return to baseline TID: 1.03 SSS: 2 SDS: 2 EF: 76 Conclusion: 1. Good exercise tolerance for a total of 5 minutes on standard Billy protocol, 7 METS achieving 93% of maximal expected heart rate 2. Appropriate heart rate response with hypertensive response to exercise, peak blood pressure 175/107 return to baseline during recovery 3. Nondiagnostic EKG changes with exercise return to baseline during recovery 4. No ischemia or infarction on SPECT images 5. Normal left ventricular size, EF 76% ANDRE REMY MD Feb 22, 2021 07:53
== END ==
LOC: CARD 09:22
PROVIDERS: ATTEND Physician Assistant
DX: I10 Essential (primary) hypertension (principal); I25.10 Atherosclerotic heart disease of native coronary artery without angina pectoris
CPT/HCPCS: 78452; 93017; 93306; A9502

== ENCOUNTER 2021-03-30 05:44 | Outpatient (RCR) | payer MEDICARE, OTHER ==
[~2021-03-30] VITALS: Ht 149.9 cm; Wt 95.6 kg
[~2021-03-30 05:44] MED LIST changes: -CATHETER FLUSH 10 ML SYR IV PRN; +FAMO-119 PO; -VERA240T14 PO; +[UNRECOGNIZED DRUG - CODE] PO
== END 2021-03-30 08:43 | disposition home or self-care (01) ==
LOC: PREOP 05:44
PROVIDERS: ATTEND Surgery
DX: Z01.812 Encounter for preprocedural laboratory examination (principal); R10.13 Epigastric pain; Z86.010 Personal history of colon polyps; Z20.822 Contact with and (suspected) exposure to COVID-19
CPT/HCPCS: 87635

== ENCOUNTER 2021-04-03 08:47 | Day surgery (SDC) | payer MEDICARE, OTHER ==
[2021-04-03] VITALS (7 sets, daily range): BP systolic 72–129; BP diastolic 45–88
[~2021-04-03] VITALS: Ht 150 cm; Wt 42.2 kg
[~2021-04-03 08:47] MED LIST changes: +LACTATED RINGERS 1,000 ML IV STA
[2021-04-03] MEDS ORDERED: HURRICAINE EXT TUBE (BENZOCAINE) XX PRN (09:00)
[2021-04-03] MEDS ORDERED: PROPOFOL INJECTION 50 ML IV ONE (10:02)
--- NOTE | 2021-04-03 10:32 | Anesthesia-General Post-Op ---
MAC Patient Condition Mental Status/LOC: Same as Preop Cardiovascular: Satisfactory Nausea/Vomiting: Absent Respiratory: Satisfactory Pain: Controlled Complications: Absent Post Op Complications Complications None Follow Up Care/Instructions Patient Instructions None needed. Anesthesiology Discharge Order Discharge Order Patient is doing well, no complaints, stable vital signs, no apparent adverse anesthesia problems. No complications reported per nursing. RAI MONTIEL CRNA Apr 03, 2021 10:32
--- NOTE | 2021-04-03 10:32 | Progress Note-Post Operative ---
Post-Operative Progess Note Surgeon (s)/Manager Play (s) Surgeon AUGUSTIN HEALY DO Manager Play: na Pre-Operative Diagnosis epigastric pain, screening colonoscopy Post-Operative Diagnosis gastritis, normal colon Procedure & Operative Findings Date of Procedure 04/03/21 Procedure Performed/Findings egd c biopsies, colonoscopy Anesthesia Type per currency counter Estimated Blood Loss Estimated blood loss (mL): none Specimens/Packing Specimens Removed antrum, ge AUGUSTIN HEALY DO Apr 03, 2021 10:32
--- NOTE | 2021-04-03 10:33 | Discharge Inst-Simple/Standard ---
Discharge Inst-Standard Discharge Medications New, Converted or Re-Newed RX: RX on Chart Patient Instructions/Follow Up Plan of Care/Instructions/FU: 2 weeks Eder Activity as Tolerated: Yes Discharge Diet: Regular Diet AUGUSTIN HEALY DO Apr 03, 2021 10:33
[2021-04-03] MEDS ORDERED: PANT40TA2 PO (10:34)
--- NOTE | 2021-04-03 18:55 | OPERATIVE REPORT ---
DATE OF SERVICE: 04/03/2021 PREOPERATIVE DIAGNOSES: Epigastric abdominal pain and screening colonoscopy. POSTOPERATIVE DIAGNOSES: Gastritis and normal colon. PROCEDURES PERFORMED: EGD with biopsies, colonoscopy. SURGEON: Augustin Gaines DO ANESTHESIA: Per CALIBRATION CHECKER. ESTIMATED BLOOD LOSS: None. COMPLICATIONS: None. INDICATIONS FOR PROCEDURE: The patient is a 71-year-old female with epigastric abdominal pain and also needing screening colonoscopy. She understands the risks and benefits of the procedure and wished to proceed with procedure. Consent was signed in the chart. DESCRIPTION OF PROCEDURE: The patient was taken to the endoscopy suite and placed in a left lateral recumbent position. Timeout was performed. Scope was inserted in the mouth, down the esophagus, stomach and into the duodenum without difficulty. No polyps, masses or ulcerations within the duodenum. Scope was slowly retracted back into the stomach, where it was further insufflated. Evidence of gastritis was present in the antrum. Biopsy of the antrum was obtained. No polyps, masses or ulcerations. Scope was retroflexed noting no other pathology. Scope was returned to its normal position, slowly withdrawn until the distal esophagus, where there were no polyps, masses or ulcerations. Biopsy of the GE junction was obtained. Scope was then slowly retracted back until completely removed, noting no other pathology. Digital rectal exam was performed. There were no palpable polyps, masses or ulcerations. Scope was inserted in the rectum, advanced all the way to cecum with minimal difficulty. Prep was adequate. Scope was then slowly retracted back. No polyps, masses or ulcerations within the cecum. The ileocecal valve was intubated and the ileum had normal appearance. Scope was retracted back to the colon and then continued to be retracted back. No polyps, masses or ulcerations noted within the ascending, transverse, descending and sigmoid colon. Once in the rectum, scope was retroflexed noting no other pathology. Scope was returned to its normal position, slowly withdrawn until completely removed. The patient tolerated the procedure well without any complications. She was taken to recovery room in a stable condition. RECOMMENDATIONS: The patient will stop Pepcid and start Protonix 40 mg daily. We will see how her symptoms are doing after this change. We will also have her follow up in two weeks to discuss pathology results as well. The patient will need a repeat colonoscopy in 10 years unless family history of colon cancer, which will then be five years, also evaluating the benefits versus the risk due to her age at that time. May likely never need colonoscopy again. Job ID: [id number] DocumentID: [id number] Dictated Date: 04/03/2021 10:37:51 Geriatric Nurse Date: 04/03/2021 18:54:38 Dictated By: AUGUSTIN GAINES DO
== END 2021-04-03 11:35 | disposition home or self-care (01) ==
LOC: ENDO 08:47
PROVIDERS: ATTEND Surgery
DX: Z12.11 Encounter for screening for malignant neoplasm of colon (principal); K29.70 Gastritis, unspecified, without bleeding; K20.90 Esophagitis, unspecified without bleeding; I10 Essential (primary) hypertension; I48.91 Unspecified atrial fibrillation; F41.9 Anxiety disorder, unspecified; Z86.010 Personal history of colon polyps; Z88.5 Allergy status to narcotic agent; Z88.0 Allergy status to penicillin; Z88.2 Allergy status to sulfonamides; Z79.01 Long term (current) use of anticoagulants; Z79.82 Long term (current) use of aspirin; Z79.899 Other long term (current) drug therapy
CPT/HCPCS: 43239; G0105